=== PATIENT | female | born 1940 | race Caucasian/White ===

== ENCOUNTER 2023-10-12 02:41 | Inpatient (IN) | payer OTHER, SELFPAY ==
[2023-10-11] VITALS (7 sets, daily range): BP systolic 92–122; BP diastolic 32–40; BMI 20.8
--- NOTE | 2023-10-11 21:55 | ED.GENMED ---
Addendum entered and electronically signed by Pavel Alegria PA-C 10/26/23 09:40:
Addendum being added for my signature only on this chart as it was not done previously.
Original Note:
History of Present Illness
<Pavel Alegria PA-C - Last Filed: 10/11/23 22:51>
General
Chief Complaint: Hyper/Hypo Thermia Problem
Source: patient
Time Seen by Provider: 10/11/23 21:28
Travel History
Have you had any contact with someone who has COVID-19?: No
Do you have any symptoms of coronavirus? Fever > 100 degrees, chills, cough, shortness of breath, sore throat, loss of taste or smell, muscle aches, or headache?: No
History of Present Illness
History of Present Illness:
83-year-old female with past medical Struve hypertension, hyperlipidemia and diabetes presenting to the emergency department from home with her daughter who reports that patient moved in with her on Wednesday, started to feel unwell on Wednesday but
daughter attributed this to the recent move, patient experienced progressive weakness, had not been eating or drinking very much and today started with persistent nausea vomiting and diarrhea, had 2 separate falls and earlier this evening when
attempting to give her usual nighttime medications patient proceeded to have a large amount of bilious emesis prompting daughter to bring her to the ER for further evaluation. Upon arrival to the emergency department patient is very sleepy,
arousable to painful stimulation and once somewhat awake will answer most questions but declining any pain or other symptoms. Daughter notes that patient had been living on her own for some time and due to some memory issues no longer felt it was
safe for the patient to be living on her own which is why the patient was moved in with her.
Past History
<Pavel Alegria PA-C - Last Filed: 10/11/23 22:51>
Past History
ED Past Medical History: HTN, Hypercholesterolemia and NIDDM
ED Past Surgical History: Cholecystectomy
Social History
Tobacco: Non-smoker
Alcohol: None
Drug: None
Personal:
Living: with family
Review of Systems
<Pavel Alegria PA-C - Last Filed: 10/11/23 22:51>
Review of Systems
All Other Systems: ROS reviewed and negative except as documented in HPI and ROS
Phy Exam
<Pavel Alegria PA-C - Last Filed: 10/11/23 22:51>
Physical Exam
Physical Exam:
GENERAL: Sleepy but awakens to painful stimuli, intermittent pursed lip breathing
Head: Normocephalic atraumatic
EYE: Clear conjunctiva
NECK: Supple
ENT: o/p clr, dry mucous membranes
CARDIAC: Borderline tachycardic rate and rhythm
LUNGS: Clear breath sounds bilaterally, shallow respirations no wheezes/rales/rhonchi
ABDOMEN: Soft, without focal tenderness, no r/g, no cvat
NEUROLOGICAL: Alert and oriented x 3
SKIN: Cold to the touch and dry, skin intact.
MUSCULOSKELETAL: No edema, well perfused.
PSYCH: Normal and appropriate interaction.
Scores
<Pavel Alegria PA-C - Last Filed: 10/11/23 22:51>
Heart Failure Risk
Heart Failure Risk Score: Not Applicable
Heart Score for Chest Pain Patients
STEMI patient?: Not applicable
Withdrawal Assessment of Alcohol
Withdrawal Assessment Completed?: Not applicable
Course
<Pavel Alegria PA-C - Last Filed: 10/11/23 22:51>
Orders/Labs/Results
Orders:
Orders
10/11/23 21:23
Electrocardiogram (*1) Urgent
Reason for Study: Other
Other Reason for Exam: Possible Sepsis
10/11/23 21:25
EKG- Treatment ONCE
10/11/23 21:35
Josseline Hugger-Treatment ONCE
Patient's goal temperature:: 97 F
Additional Instructions:: Temperature and skin assessment per unit protocol
Straight cath- Treatment ONCE
Piperacillin/Tazo 4.5 Gram [Zosyn] 4.5 gram in 100 ml IV NOW
CR Chest Portable - 1 View Urgent
Comment:
Reason For Exam: hypothermia, N/V
Reason Study Needs to be Portable: Patient Unstable
10/11/23 21:36
CT Head W/o Iv Contrast Urgent
Comment:
Reason For Exam: falls, weak, vomiting
10/11/23 22:04
0.9% Sodium Chloride 1000 ml [Nss] 1,700 ml IV NOW STA
10/11/23 22:10
Complete Blood Count/With Diff Urgent
Comprehensive Metabolic Panel Urgent
Lactic Acid Q4H
Comment: ON ICE, CANCEL 2ND ORDER IF FIRST LACTIC ACID LEVEL <2
Blood Culture Q30M
PAULINE Source: Blood/Venous
Specimen Description:
Comment: FROM 2 SEPARATE SITES
Blood Culture Q30M
PUALINE Source: Blood/Venous
Specimen Description:
Comment: FROM 2 SEPARATE SITES
10/11/23 22:11
Urinalysis Reflex To Culture Urgent
Date Specimen was Collected: 10/11/23
Time Specimen was Collected: 22:09
Urine Microscopic Reflex Cult Urgent
10/11/23 22:12
Vancomycin [Vancocin] 1,500 mg 0.9% Sodium Chloride [Nss] 20 ml 0.9% Sodium Chloride 250 ml [Nss] 250 ml IV NOW
10/11/23 22:44
Calcium Gluconate 1 gram/100mL [Calcium Gluconate] 1 gram in 100 ml IV ONCE
Insulin Human Regular [Novolin R] 4 units IV NOW STA
Sodium Bicarbonate 50 meq IV NOW STA
Sodium Zirconium Cyclosilicate [Lokelma] 10 gram PO NOW STA
10/11/23 22:45
CT Abd/pel Without Iv Or Oral Urgent
Comment:
Reason For Exam: vomiting/diarrhea
10/11/23 23:34
Bedside Glucose- Treatment ONCE
10/12/23 00:15
Sterile Water For Inj [Sterile Water For Injection 1000 ml] 1,000 ml Sodium Bicarbonate 150 meq IV 200 mls/hr
10/12/23 01:30
Lactic Acid Q4H
Comment: ON ICE, CANCEL 2ND ORDER IF FIRST LACTIC ACID LEVEL <2
Abnormal Lab Results
10/11/23 10/11/23
22:10 22:11
WBC 11.4 H 10^3/uL
(4.8-10.8)
RBC 2.78 L 10^6/uL
(4.20-5.40)
Hgb 9.4 L g/dL
(12.0-16.0)
Hct 29.6 L %
(37.0-47.0)
MCV 106.5 H fL
(81.0-99.0)
MCH 33.8 H pg
(27.0-31.0)
MCHC 31.8 L g/dL
(33.0-37.0)
Abs Immat Gran (auto) 0.1 H 10^3/uL
(0-0.05)
Absolute Neuts (auto) 9.5 H 10^3/uL
(1.4-6.5)
Neutrophils % 83.6 H %
(42.2-75.2)
Lymphocytes % 11.3 L %
(20.5-51.1)
Sodium 126 L mmol/L
(135-145)
Potassium 7.1 H* mmol/L
(3.5-5.1)
Chloride 93 L mmol/L
(98-107)
Carbon Dioxide < 5 L* mmol/L
(22-30)
BUN 77 H mg/dl
(7-17)
Creatinine 8.9 H* mg/dL
(0.6-1.0)
Glucose 233 H mg/dl
(70-99)
Lactic Acid 7.3 H* mmol/L
(0.7-2.0)
Urine Ketones Trace A
(Negative)
Urine Albumin (Reflex) 2+ A
(Neg - Trace)
10/11/23 22:10
10/11/23 22:10
Vital Signs
Initial and Last Documented VS:
Initial Vital Signs
Temp Pulse Resp BP
94.2 F L 98 22 104/36
10/11/23 21:09 10/11/23 21:09 10/11/23 21:09 10/11/23 21:09
Last Documented Vital Signs
Temp Pulse Resp BP Pulse Ox
95.6 F L 95 15 100/40 97
10/11/23 22:51 10/11/23 22:30 10/11/23 22:30 10/11/23 22:00 10/11/23 22:30
Arthurlt;Alfredo Hi, DO - Last Filed: 10/12/23 00:39>
Orders/Labs/Results
Orders:
Orders
10/11/23 21:23
Electrocardiogram (*1) Urgent
Reason for Study: Other
Other Reason for Exam: Possible Sepsis
10/11/23 21:25
EKG- Treatment ONCE
10/11/23 21:35
Josseline Hugger-Treatment ONCE
Patient's goal temperature:: 97 F
Additional Instructions:: Temperature and skin assessment per unit protocol
Straight cath- Treatment ONCE
Piperacillin/Tazo 4.5 Gram [Zosyn] 4.5 gram in 100 ml IV NOW
CR Chest Portable - 1 View Urgent
Comment:
Reason For Exam: hypothermia, N/V
Reason Study Needs to be Portable: Patient Unstable
10/11/23 21:36
CT Head W/o Iv Contrast Urgent
Comment:
Reason For Exam: falls, weak, vomiting
10/11/23 22:04
0.9% Sodium Chloride 1000 ml [Nss] 1,700 ml IV NOW STA
10/11/23 22:10
Complete Blood Count/With Diff Urgent
Comprehensive Metabolic Panel Urgent
Lactic Acid Q4H
Comment: ON ICE, CANCEL 2ND ORDER IF FIRST LACTIC ACID LEVEL <2
Blood Culture Q30M
PAULINE Source: Blood/Venous
Specimen Description:
Comment: FROM 2 SEPARATE SITES
Blood Culture Q30M
PAULINE Source: Blood/Venous
Specimen Description:
Comment: FROM 2 SEPARATE SITES
10/11/23 22:11
Urinalysis Reflex To Culture Urgent
Date Specimen was Collected: 10/11/23
Time Specimen was Collected: 22:09
Urine Microscopic Reflex Cult Urgent
10/11/23 22:12
Vancomycin [Vancocin] 1,500 mg 0.9% Sodium Chloride [Nss] 20 ml 0.9% Sodium Chloride 250 ml [Nss] 250 ml IV NOW
10/11/23 22:44
Calcium Gluconate 1 gram/100mL [Calcium Gluconate] 1 gram in 100 ml IV ONCE
Insulin Human Regular [Novolin R] 4 units IV NOW STA
Sodium Bicarbonate 50 meq IV NOW STA
Sodium Zirconium Cyclosilicate [Lokelma] 10 gram PO NOW STA
10/11/23 22:45
CT Abd/pel Without Iv Or Oral Urgent
Comment:
Reason For Exam: vomiting/diarrhea
10/11/23 23:34
Bedside Glucose- Treatment ONCE
10/12/23 00:15
Sterile Water For Inj [Sterile Water For Injection 1000 ml] 1,000 ml Sodium Bicarbonate 150 meq IV 200 mls/hr
10/12/23 01:30
Lactic Acid Q4H
Comment: ON ICE, CANCEL 2ND ORDER IF FIRST LACTIC ACID LEVEL <2
Abnormal Lab Results
10/11/23 10/11/23
22:10 22:11
WBC 11.4 H 10^3/uL
(4.8-10.8)
RBC 2.78 L 10^6/uL
(4.20-5.40)
Hgb 9.4 L g/dL
(12.0-16.0)
Hct 29.6 L %
(37.0-47.0)
MCV 106.5 H fL
(81.0-99.0)
MCH 33.8 H pg
(27.0-31.0)
MCHC 31.8 L g/dL
(33.0-37.0)
Abs Immat Gran (auto) 0.1 H 10^3/uL
(0-0.05)
Absolute Neuts (auto) 9.5 H 10^3/uL
(1.4-6.5)
Neutrophils % 83.6 H %
(42.2-75.2)
Lymphocytes % 11.3 L %
(20.5-51.1)
Sodium 126 L mmol/L
(135-145)
Potassium 7.1 H* mmol/L
(3.5-5.1)
Chloride 93 L mmol/L
(98-107)
Carbon Dioxide < 5 L* mmol/L
(22-30)
BUN 77 H mg/dl
(7-17)
Creatinine 8.9 H* mg/dL
(0.6-1.0)
Glucose 233 H mg/dl
(70-99)
Lactic Acid 7.3 H* mmol/L
(0.7-2.0)
Urine Ketones Trace A
(Negative)
Urine Albumin (Reflex) 2+ A
(Neg - Trace)
10/11/23 22:10
10/11/23 22:10
Vital Signs
Initial and Last Documented VS:
Initial Vital Signs
Temp Pulse Resp BP
94.2 F L 98 22 104/36
10/11/23 21:09 10/11/23 21:09 10/11/23 21:09 10/11/23 21:09
Last Documented Vital Signs
Temp Pulse Resp BP Pulse Ox
95.6 F L 95 15 100/40 97
10/11/23 22:51 10/11/23 22:30 10/11/23 22:30 10/11/23 22:00 10/11/23 22:30
<Pavel Alegria PA-C - Last Filed: 10/11/23 22:51>
MDM/Problems Addressed
Differential Diagnosis Includes:
Sepsis/bacteremia, pneumonia, UTI, aspiration, electrolyte disturbance, kidney injury
MDM/Problems Addressed:
83-year-old female presenting to the emergency department from daughter's home for evaluation of nausea vomiting diarrhea, lack of p.o. intake, seemingly situation that seems to be failure to thrive. Patient's daughter states patient is to be made
DNR/DNI. Patient found to be significantly hypothermic here she was placed with multiple warm blankets and will initiate a Josseline hugger. Labs including cultures and lactic acid ordered chest x-ray and urinalysis ordered. Broad-spectrum antibiotics
ordered for infectious etiologies. Anticipate admission.
<Pavel Alegria PA-C - Last Filed: 10/11/23 22:51>
*Pulse Oximetry
Patient hypoxic: no
*EKG
Interpreted by ED Provider?: Yes
Comparison EKG: no comparison EKG present
Heart Rate: 89
Rate: normal
Rhythm: sinus
Ischemia: no ischemia
*Critical Care Note
Total Time (30-74mins, 75-104mins- exclusive of procedures): 45
comment:
Critical care statement: A total of 45 minutes of critical care time was provided for this patient. This includes management of unstable vital signs, evaluation of the patient at bedside, reviewing the patient's pertinent medical records, discussion
with consultants, review of old EKGs and review of pertinent medical records. This time with separate from time utilized to perform the aforementioned documented procedures
<Alfredo Hi DO - Last Filed: 10/12/23 00:39>
*Medical Biller/Coder Interpretation
Rate: normal
Interpretation: normal
Heart Rate: 78
Rhythm: sinus
<Pavel Alegria PA-C - Last Filed: 10/11/23 22:51>
Patient Management
Discussion with other providers: Hospitalist and Spinning Frame Changer
Escalation/DeEscalation of care consider admission/obs:
Patient's labs returned with significant abnormalities including leukocytosis of 11,000, hemoglobin 9.4, leftward shift. Chemistry is significantly abnormal with sodium of 126, potassium of 7.1, bicarb less than 5, prerenal azotemia and a
creatinine of 8.9, lactic acid 7.3. Due to the significant hyperkalemia, calcium gluconate, insulin, bicarb and Lokelma were ordered. I notified on-call shoe cutter as well as notified hospitalist team that patient will need to be transferred to
the ICU. Hospitalist accepts for continued evaluation and treatment.
ED Attending Note
<Pavel Alegria PA-C - Last Filed: 10/11/23 22:51>
-
Portions of this chart may have been created with voice recognition software.� Occasional wrong word or��sound alike� substitutions may have occurred due to the inherent limitations of voice recognition software.
<Alfredo Hi DO - Last Filed: 10/12/23 00:39>
ED Attending Note
Patient seen and examined by attending physician: Yes
I performed the substantive portion of visit, reviewed & personally made and approve the management plan that is documented in note by myself or JUAN F.: Yes
ED Attending Note:
Seen with PA examined independently agree with assessment and plan ill-appearing lady acute renal failure severe acidosis hyperkalemia, plan will be volume resuscitation, broad-spectrum antibiotics, hyperkalemia treatment CT of the abdomen to rule
out obstruction prognosis appears guarded
Discharge Plan
Departure
Patient Disposition: Admit
Date of Disposition: 10/11/23
Time of Disposition: 22:43
Presentation/result/management discussed w/ accepting MD/DO: Hospitalist
Discharge Problem:
Sepsis, Acute hyponatremia, Acute hyperkalemia, MARTI (acute kidney injury), Anemia
Prescriptions:
No Action
cyanocobalamin (vitamin B-12) [Vitamin B-12] 1,000 mcg Tablet
1,000 mcg PO DAILY
citalopram 20 mg tablet
30 mg PO QPM
lisinopril-hydrochlorothiazide 20-25 mg tablet
1 tab PO QPM
pravastatin 20 mg tablet
20 mg PO QPM
metformin 500 mg tablet extended release 24 hr
1,000 mg PO BID
metoprolol tartrate 25 mg tablet
12.5 mg PO BID
Centrum 18-400 mg-mcg Tablet
1 tab PO DAILY
omega 2-jbl-rgc-fish oil [Fish Oil] 1,000 mg (120 mg-180 mg) Capsule
1 cap PO BID
Move Free [employer] 750 mg-100 mg- 1.65 mg-108 mg Tablet
1 tab PO BID
Referrals:
UNKNOWN - PT DOES,NOT KNOW [Unknown Provider] -
Interventions
Interventions:
*Risk Screen - Suicide Last Done: 10/12/23 00:07
*General Assessment Last Done: 10/11/23 22:30
*Neglect/Abuse Screening Last Done: 10/12/23 00:07
*ED COVID-19 Vaccine History Last Done: 10/12/23 00:06
WO-Dindcd-Swafsektkh Assessment Last Done: 10/11/23 22:52
ED- Neurological Assessment Last Done: 10/11/23 22:52
[2023-10-11] MEDS: NSS 1700 ML IV (22:12)
[2023-10-11] MEDS: ZOSYN 100 IV (22:17)
[2023-10-11 22:18] LABS: % Basophils 0.1 % (0-2); % Eosinophils 0.1 % (0-6); % Immature Granulocytes 0.4 % (0-0.5); % Lymphocytes 11.3 % (20.5-51.1); % Monocytes 4.5 % (1.7-9.3); % Neutrophils 83.6 % (42.2-75.2); Absolute Immature Granulocytes 0.1 10^3/uL (0-0.05); Absolute Lymphocytes 1.3 10^3/uL (1.2-3.4); Absolute Monocytes 0.5 10^3/uL (0.1-0.6); Absolute Neutrophils 9.5 10^3/uL (1.4-6.5); Hematocrit 29.6 % (37.0-47.0); Hemoglobin 9.4 g/dL (12.0-16.0); Mean Corp Hgb Conc. 31.8 g/dL (33.0-37.0); Mean Corpuscular Hgb 33.8 pg (27.0-31.0); Mean Corpuscular Volume 106.5 fL (81.0-99.0); Mean Platelet Volume 9.6 fL (7.4-10.4); Nucleated Red Blood Cells % 0 %; Platelet Count 306 10^3/uL (130-400); Red Blood Cell Count 2.78 10^6/uL (4.20-5.40); Red Cell Dist. Width 12.8 % (11.5-14.5); White Blood Cell Count 11.4 10^3/uL (4.8-10.8)
[2023-10-11 22:19] LABS: Urine Albumin 2+ (Neg - Trace); Urine Bilirubin Negative (Negative); Urine Character Slightly Cloudy (Clear); Urine Color Yellow; Urine Glucose Negative (Negative); Urine Ketone Trace (Negative); Urine Leukocyte Negative (Negative); Urine Nitrite Negative (Negative); Urine Occult Blood Negative (Negative); Urine Urobilinogen Negative (Neg - 1+)
[2023-10-11 22:31] LABS: Urine Granular Cast >15 /LPF (0); Urine Red Blood Cell None Seen /HPF (0-2); Urine Squamous Cell 16-20 /LPF (Few)
[2023-10-11 22:38] LABS: ALT (SGPT) 22 U/L (0-35); AST (SGOT) 31 U/L (14-36); Albumin 4.3 g/dl (3.5-5.0); Alkaline Phosphatase 81 U/L (38-126); Blood Urea Nitrogen 77 mg/dl (7-17); Calcium 9.3 mg/dl (8.4-10.2); Carbon Dioxide < 5 mmol/L (22-30); Chloride 93 mmol/L (98-107); Estimated Creatinine Clearance 4 ml/min; Glucose 233 mg/dl (70-99); Potassium 7.1 mmol/L (3.5-5.1); Sodium 126 mmol/L (135-145); Total Bilirubin 0.5 mg/dl (0.2-1.3); Total Protein 6.7 g/dl (6.3-8.2); eGFR 4.06
[2023-10-11 22:39] LABS: Lactic Acid 7.3 mmol/L (0.7-2.0)
[2023-10-11] MEDS: VANCOCIN 300 ML IV (23:32)
[2023-10-11] MEDS: VANCOCIN 300 MG IV (23:32)
[2023-10-11] MEDS: SODIUM BICARBONATE 50 MEQ IV (23:41)
[2023-10-11] MEDS: NOVOLIN R 4 UNITS IV (23:45)
[2023-10-11] MEDS: CALCIUM GLUCONATE 100 IV (23:50)
[2023-10-12] VITALS (71 sets, daily range): BP systolic 54–134; BP diastolic 27–120; BMI 22.0
[2023-10-12 00:43] LABS: Glucose - Point of Care 229 mg/dl (70-99)
[2023-10-12] MEDS: SODIUM BICARBONATE 1150 MEQ IV ×5 (01:15→22:47)
[2023-10-12] MEDS: LEVOPHED 250 IV ×4 (01:21→20:30)
--- NOTE | 2023-10-12 02:00 | HPS.HSE ---
Family Physician
-
Family Physician: Melquiades Shin
Chief Complaint
-
weakness, nausea, vomiting, diarrhea
History of Present Illness
The patient is an 83 yo woman with PMH significant for HTN, HLD, DM, presents do the ED due to progressive weakness, anorexia, nausea, vomiting, and diarrhea that started on Wednesday. She has had decreased oral intake since that time. She moved in
with her daughter on Wednesday and symptoms have been progressively getting worse over the past several days. She had 2 falls earlier this evening. Emesis this evening was large volume, bilious in nature and she was brought to ED by her daughter. The
patient has been very somnolent but able to answer questions appropriately when prompted. Recently she's had worsening memory issues, for which she she moved in with her daughter after living on her own prior. In the ED she is found to be lethargic,
in acute renal failure, hypothermic, tachycardic, hypotensive, and hyperkalemic. She is being admitted for septic shock, unknown etiology.
ED txt:
IVF 1700 mL sepsis protocol
blood cultures
IV Zosyn, IV Vancomycin
Calcium gluconate, insulin, sodium bicarbonate followed by sodium bicarbonate drip, LoKelma, Levophed gtt
Medical History
Past Medical History
Past Medical History: Reports HTN, Hypercholesterolemia and NIDDM
Past Surgical History: Reports Cholecystectomy
Social History
Tobacco: Non-smoker
Alcohol: None
Drug: None
Personal:
Living: With Family (Daughter)
Family History
Family History: Not pertinent
Allergies / Home Medications
Allergies reflects when Allergies were last updated in [facility].
Home Medications with original date entered in [facility]
Allergy/Medication List:
Allergies
Allergy/AdvReac Type Severity Reaction Status Date / Time
No Known Allergies Allergy Verified 10/11/23 22:01
Home Medications
citalopram 20 mg tablet 30 mg PO QPM 10/11/23
cyanocobalamin (vitamin B-12) 1,000 mcg tablet (Vitamin B-12) 1,000 mcg PO DAILY 10/11/23
glucosam 750 mg-chondroi 100 mg-hyalur 1.65 mg-CF borate 108 mg tablet (Move Free [employer]) 1 tab PO BID 10/11/23
lisinopril 20 mg-hydrochlorothiazide 25 mg tablet 1 tab PO QPM 10/11/23
metformin 500 mg tablet,extended release 24 hr 1,000 mg PO BID 10/11/23
metoprolol tartrate 25 mg tablet 12.5 mg PO BID 10/11/23
multivitamin-ferrous fumarate-folic acid 18 mg-400 mcg tablet (Centrum) 1 tab PO DAILY 10/11/23
omega 0-xft-zjb-fish oil 1,000 mg (120 mg-180 mg) capsule (Fish Oil) 1 cap PO BID 10/11/23
pravastatin 20 mg tablet 20 mg PO QPM 10/11/23
Review of Systems
-
A 12 point ROS was completed and negative except as noted: Yes
Physical Exam
Vital Signs
Vital Signs
Temp Pulse Resp BP Pulse Ox
97.2 F 103 22 83/29 99
10/12/23 01:34 10/12/23 01:19 10/12/23 01:19 10/12/23 01:19 10/12/23 01:19
Physical Exam
General: Appears Chronically Ill and Other (lethargic, bear hugger)
HEENT: NormoCephalic, Anicteric and Other (dry mucosa )
Respiratory: Clear
Cardiac: S1/S2 and Tachycardia
GI: Soft, Non Tender, Non Distended and Normal Bowel Sounds
Musculoskeletal: No Clubbing
Neuro: No Motor Deficits and Nonfocal/grossly intact
Psych: Other (lethargic)
Laboratory Results
-
10/11/23 22:10
10/11/23 22:10
Laboratory Results
Lactic Acid 7.3 mmol/L (0.7-2.0) H* 10/11/23 22:10
Total Bilirubin 0.5 mg/dl (0.2-1.3) 10/11/23 22:10
AST 31 U/L (14-36) 10/11/23 22:10
ALT 22 U/L (0-35) 10/11/23 22:10
Alkaline Phosphatase 81 U/L (38-126) 10/11/23 22:10
Data Reviewed
-
CT Scan: Report Reviewed by me (CT Head no acute findings, CT AP patchy opacities lung bases, no acute intra-abdominal findings, no free air, no bowel obstruction)
Medical Tests (Nuc Med, Echo, EKG etc): Report Reviewed by me (NSR)
Impression/Plan
-
IMPRESSION:The patient is an 83 yo woman with PMH significant for HTN, HLD, DM, presents do the ED due to progressive weakness, anorexia, nausea, vomiting, and diarrhea that started on Wednesday. She has had decreased oral intake since that time. She
moved in with her daughter on Wednesday and symptoms have been progressively getting worse over the past several days. She had 2 falls earlier this evening. Emesis this evening was large volume, bilious in nature and she was brought to ED by her
daughter. The patient has been very somnolent but able to answer questions appropriately when prompted. Recently she's had worsening memory issues, for which she she moved in with her daughter after living on her own prior. In the ED she is found to
be lethargic, in acute renal failure, hypothermic, tachycardic, hypotensive, and hyperkalemic. She is being admitted for septic shock, unknown etiology.
ED txt:
IVF 1700 mL sepsis protocol
blood cultures
IV Zosyn, IV Vancomycin
Calcium gluconate, insulin, sodium bicarbonate followed by sodium bicarbonate drip, LoKelma, Levophed gtt
#Septic shock, unknown etiology, consider pneumonia bibasilar versus bacteremia associated with leukocytosis with leftward shift, lactic acidosis, severe metabolic acidosis, unremarkable urine analysis
-blood cultures pending
-IV Vanco, IV Zosyn
-IVF
-Levo gtt, continue
-serial labs
-serial LA level
#Acute renal failure, no known history of renal disease
-severe dehydration associated with n/v/d- no current n/v/d, normal LFTs
-stool studies
-IV bicarb gtt
-follow labs
-Nephro consulted
-serial LA level
#HTN
#HLD
DVT proph - hep SQ
DNR
75 minutes of critical care time is spent on the care of the patient
[2023-10-12 03:22] LABS: Lactic Acid 4.4 mmol/L (0.7-2.0)
--- NOTE | 2023-10-12 03:27 | W.PN.SEPSIS ---
Sepsis
Vital Signs
Temp Pulse Resp BP Pulse Ox
97.2 F 103 21 90/35 100
10/12/23 01:34 10/12/23 03:00 10/12/23 03:00 10/12/23 03:00 10/12/23 03:21
Physical Exam
Physical Exam:
A focused exam was performed after fluid resuscitation.
Capillary Refill
Bilateral Lower Extremity:
Marianna Time: Less than 3 sec
Pulse Evaluation
Bilateral:
Pulse Evaluation: Present
[2023-10-12 03:31] LABS: COVID-19 Antigen Negative (Negative)
[2023-10-12 04:02] LABS: Magnesium 2.6 mg/dl (1.6-2.3)
[2023-10-12 04:03] LABS: % Basophils 0.1 % (0-2); % Eosinophils 0.1 % (0-6); % Immature Granulocytes 0.9 % (0-0.5); % Lymphocytes 17.3 % (20.5-51.1); % Monocytes 7.6 % (1.7-9.3); Absolute Immature Granulocytes 0.1 10^3/uL (0-0.05); Absolute Monocytes 0.9 10^3/uL (0.1-0.6); Absolute Neutrophils 8.7 10^3/uL (1.4-6.5); Hematocrit 25.3 % (37.0-47.0); Hemoglobin 8.4 g/dL (12.0-16.0); Mean Corp Hgb Conc. 33.2 g/dL (33.0-37.0); Mean Corpuscular Hgb 33.5 pg (27.0-31.0); Mean Corpuscular Volume 100.8 fL (81.0-99.0); Mean Platelet Volume 9.3 fL (7.4-10.4); Nucleated Red Blood Cells % 0 %; Platelet Count 267 10^3/uL (130-400); Red Blood Cell Count 2.51 10^6/uL (4.20-5.40); Red Cell Dist. Width 12.7 % (11.5-14.5); White Blood Cell Count 11.7 10^3/uL (4.8-10.8)
[2023-10-12 04:21] LABS: Lactic Acid 4.7 mmol/L (0.7-2.0)
[2023-10-12 04:23] LABS: APTT 25.8 Sec (23.4-35.0); INR 1.26; PT 15.7 Sec (11.4-14.6)
[2023-10-12 04:24] LABS: Fibrinogen 377 MG/DL (199-459)
[2023-10-12 04:26] LABS: D-Dimer 1.95 ug/mlFEU (0.00-0.50)
[2023-10-12 04:34] LABS: Procalcitonin 0.64 ng/ml (0.0-0.25)
--- NOTE | 2023-10-12 04:53 | W.PN.UPDATE ---
Update Note
Progress Note Update
0400 Patient's right arm peripheral IV blew resulting in Levophed extravasation. IV unable to aspirate. Instructed to remove peripheral IV, elevate arm, and apply warm compression. Monitor the site and phentolamine ordered SQ with any
significant changes.
[2023-10-12 04:54] LABS: TSH 2.27 uIU/ml (0.47-4.68)
[2023-10-12 05:01] LABS: ALT (SGPT) 15 U/L (0-35); AST (SGOT) 25 U/L (14-36); Albumin 3.3 g/dl (3.5-5.0); Alkaline Phosphatase 62 U/L (38-126); Blood Urea Nitrogen 81 mg/dl (7-17); Calcium 8.7 mg/dl (8.4-10.2); Carbon Dioxide 7 mmol/L (22-30); Chloride 95 mmol/L (98-107); Estimated Creatinine Clearance 4 ml/min; Glucose 201 mg/dl (70-99); Potassium 6.8 mmol/L (3.5-5.1); Sodium 130 mmol/L (135-145); Total Bilirubin 0.5 mg/dl (0.2-1.3); Total Protein 5.4 g/dl (6.3-8.2); eGFR 4.35
[2023-10-12] MEDS: DEXTROSE 50% SYRINGE 25 GRAMS IV ×2 (05:46→12:37)
[2023-10-12] MEDS: NOVOLIN R 10 UNITS IV (05:46)
[2023-10-12] MEDS: ZOSYN 50 IV ×3 (05:46→20:52)
--- NOTE | 2023-10-12 06:00 | PTCARENOTE ---
Pt recently moved in with daughter (10/09). As per daughter, pt was progressively weak, decreased PO intake, nausea/vomiting/diarrhea,fellX2, sleepy but arousable. In ED, hypothermic 94.2PR, karlene hugger. EKG NSR. Electrolytes as resulted.
All IVs infiltrated upon arrival to ICU. Regitine given by VAT team to right forearm (levo site), measures 4.5X3.75, elevated/heat applied. 3 PIV placed. Repeat K6.8, Amp D50, 10U Reg insulin IV. Pt responds to voice, oriented to self consistently.
PHILIP generalized weakness. No c/o pain. Rectal probe placed, temp 98.0. NSR on monitor. BP MAP goal 65, titrating levo to clinical endpoint. Bicarb gtt. Room air, clear. NPO, nausea at times. Reyes placed. No urine output. Bladder scan 0. Report
given to ongoing shift.
[2023-10-12] MEDS: REGITINE 10 MG SC (06:21)
[2023-10-12] MEDS: REGITINE 10 ML SC (06:21)
--- NOTE | 2023-10-12 07:10 | VATNOTE ---
Called to assess right arm levophed infiltrattion Measuring 11.5cm x 9.5 cm. Hyaluronidase given. elevated on pillows with warm compress. Will monitor closely.
[2023-10-12] MEDS: HEPARIN 5000 UNITS SC ×2 (07:50→20:52)
[2023-10-12] MEDS: PITRESSIN 100 IV ×2 (07:52→16:54)
--- NOTE | 2023-10-12 08:01 | PTCARENOTE ---
Pt with increasing pressor requirements this am as charted. Bicarb gtt also infusing as ordered. Dr Mercedes updated and vasopressin ordered and initiated. Consult also ordered for IR to place tlc. They are currently at bedside to place
catheter.
--- NOTE | 2023-10-12 08:02 | CON.INTV ---
Consultation
Consultation Request
Date/Time Consultation Requested: 10/12/2023706
Date/Time Consultation Performed: 10/12/2023800
Requesting Provider: KANDICE Garces
Performing Provider: Dr. Mercedes
Reason for Consultation: Shock on vasopressors
Medical History
-
Chief Complaint: Nausea/vomiting
History of Present Illness:
83-year-old F with PMHx below who p/w nausea/vomiting, weakness, diarrhea x few days and hypothermic in ER. Pt hypotensive in ER to 91/32, she was given IVF with 1.7L and started on levophed. WBC elevated to 11.4, lactate elevated to 4.4, MARTI
with Cr 8.9. UA appears clear. Pt given Abx. Iniital K 7.1 and she was Tx with temporizing agents with dextrose + insulin. Repeat K is 6.8 this AM. Lokelma could not be given due to nausea/vomiting. She was started on bicarb gtt and TRX to ICU
for further care. After arriving from ER she had RUE infiltration of levo and bicarb. Her RUE was Tx with phentolamine 5mg. Critical care services consulted for additional recommendations.
This AM pt was seen and her BP was 110/67, HR 96 and RR 21. She is on room air saturating 98%. She is sleepy but awakens, albeit she is disoriented/confused.
PMHx: Hypertension, hyperlipidemia, DM type II
PSHx: Cholecystectomy
Past Medical History
Past Medical History: Other (Above as per HPI)
Past Surgical History: Other (Above as per HPI)
Social History
Tobacco: Non-smoker
Alcohol: None
Drug: None
Personal:
Living: With Family
Family History
Family History: Reviewed & Not Pertinent
Allergies / Home Medications
Allergies
Allergy/AdvReac Type Severity Reaction Status Date / Time
No Known Allergies Allergy Verified 10/11/23 22:01
Home Medications
Medication Instructions Recorded Confirmed Last Taken Type
citalopram 20 mg tablet 30 mg PO QPM 10/11/23 10/11/23 10/10/23 History
cyanocobalamin (vitamin B-12) 1,000 mcg PO DAILY 10/11/23 10/11/23 10/10/23 History
1,000 mcg tablet (Vitamin B-12)
glucosam 750 mg-chondroi 100 1 tab PO BID 10/11/23 10/11/23 10/10/23 History
mg-hyalur 1.65 mg-CF borate 108 mg
tablet ([employer])
lisinopril 20 1 tab PO QPM 10/11/23 10/11/23 10/10/23 History
mg-hydrochlorothiazide 25 mg tablet
metformin 500 mg tablet,extended 1,000 mg PO BID 10/11/23 10/11/23 10/10/23 History
release 24 hr
metoprolol tartrate 25 mg tablet 12.5 mg PO BID 10/11/23 10/11/23 10/10/23 History
multivitamin-ferrous 1 tab PO DAILY 10/11/23 10/11/23 10/10/23 History
fumarate-folic acid 18 mg-400 mcg
tablet (Centrum)
omega 2-ruq-qlr-fish oil 1,000 mg 1 cap PO BID 10/11/23 10/11/23 10/10/23 History
(120 mg-180 mg) capsule (Fish Oil)
pravastatin 20 mg tablet 20 mg PO QPM 10/11/23 10/11/23 10/10/23 History
Review of Systems
-
History Source: Patient
All other systems: Negative unless noted
Vitals / Labs / Diagnostic Testing
Vital Signs
Temp Pulse Resp BP Pulse Ox
97.5 F 105 18 105/55 95
10/12/23 08:16 10/12/23 08:15 10/12/23 08:15 10/12/23 08:15 10/12/23 08:15
Lab Data
10/12/23 03:52
10/12/23 03:52
Laboratory Results
10/12/23 10/12/23 10/12/23
03:52 03:52 03:52
PT 15.7 H Cancelled
INR 1.26 Cancelled
APTT 25.8
10/12/23
03:52
PT
INR
APTT Cancelled
Diagnostic Testing:
Physical Exam
-
HEENT: Normocephalic and Anicteric
Cardiovascular: S1/S2 and Peripheral Edema (+1 LE pitting edema b/l)
Respiratory: Clear (anterior lung huang b/l), Wheeze (Negative), Rales (Negative), Rhonchi (Negative) and Non-Labored Respirations
GI: Soft, Non Distended and Non Tender
Neurology: Awake and Alert
Skin: Warm, Dry and Other (Erythema seen with small amount of blistering involving the proximal, medial right upper extremity)
General: Comfortable
Assessment
-
Assessment: 83-year-old F with PMHx below who p/w nausea/vomiting, weakness, diarrhea x few days and hypothermic in ER. Pt hypotensive in ER to 91/32, she was given IVF with 1.7L and started on levophed. WBC elevated to 11.4, lactate elevated
to 4.4, MARTI with Cr 8.9. UA appears clear. Pt given Abx. Iniital K 7.1 and she was Tx with temporizing agents with dextrose + insulin. Repeat K is 6.8 this AM. Lokelma could not be given due to nausea/vomiting. She was started on bicarb gtt and
TRX to ICU for further care. After arriving from ER she had RUE infiltration of levo and bicarb. Her RUE was Tx with phentolamine 5mg. Critical care services consulted for additional recommendations.
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
Impression:
#Acute kidney injury with hyperkalemia -due to prerenal azotemia in the setting of severe hypovolemia
#Hypovolemic shock with possible septic component (RLL + colitis are septic sources)
#Diarrhea with (mild) colitis seen on CT abd/pelvis
#Lactic acidosis
#Metabolic acidosis with increased anion gap -multifactorial due to lactic acidosis, starvation ketoacidosis and acute kidney injury
#Anemia
#Infiltrated IV with vasopressors causing local injury to RUE s/p phentolamine
Plan:
- Appears that patient has severe hypovolemia with starvation ketosis/ketoacidosis --> in this setting, we should give not only bicarb, but only IVF in addition to glucose containing fluids --> this has been shown to improve patient's endogenous
insulin production and restoring normal metabolic processes thus improving the metabolic acidosis and the hyperglycemia also should improve
- I will change the sterile HCO3 gtt to D5-HCO3 gtt and also add gentle hydration with NS 0.9% at 75mL/hr
- Trend sCr, [K], blood glucose and use ISS q6hr
- Use temporizing agents to treat K>5.8 with goal K 3.5 - 5.2
- Will need central line to be placed mejia given the recent vasopressor infiltration into RUE --> consult IR for placement of IJ CVC/TLC
- Check vitamin B1 level given mild RUL PNA and clear urine with low suspicion for severe sepsis
- Continue vasopressors with goal MAP>65
- Continue broad spectrum ABx with zosyn and vanco --> DC IV vanco if MRSA swab negative
- Once pt stabilizes then we can narrow Abx down to unasyn
- Would given total of 7-10 days ABx
- Check renal US --> no hydro seen
- Follow up blood Cx and trend procal; follow up stool Cx
- Consult wound care for RUE and monitor pulses q1hr at least for first 24 hrs
- renally dose all meds/Abx
- stress ulcer ppx: n/a
- DVT ppx: HSQ
Code status: DNR
Critical care statement: A total of 40 minutes of critical care time was provided for this patient today. This includes management of unstable vital signs, evaluation of the patient at bedside, reviewing the patient's pertinent medical records
including radiographs, microbiology, laboratory evaluations, and discussion with primary team, consultants, pharmacy, nutrition, physical therapy, case management, charge nurse, critical care nursing, and respiratory therapy.
Data:
CT abd/pelvis 10-11-2023:
1. Suspicion for a mild colitis given the presence of mild diffuse colonic wall thickening. However, overall somewhat limited evaluation for an acute inflammatory process in the absence of oral and intravenous contrast.
2. Right lower lobe pneumonia.
[2023-10-12 08:56] LABS: Glycohemoglobin (HgbA1c) 5.8 % (4.0-5.6)
--- NOTE | 2023-10-12 09:08 | PTCARENOTE ---
Daughter called in and was given update.
--- NOTE | 2023-10-12 09:09 | PHA.VAN.IN ---
Assessment
- Assessment
Renal Function: Unknown baseline (no prior admissions but MARTI per notes)
Concomitant Antimicrobials: piperacillin/tazobactam
Plan
- Plan
Initial / Loading Dose: 1500mg - 10/11 23:32
Maintenance Regimen: PRN by level
Monitoring: random 10/13 0600
MRSA Screen: Ordered per protocol
Pharmacokinetics Vancomycin I
- -
Patient Age: 83
Patient Sex: Female
Vancomycin Day #: 1
Indication: Pulmonary/Respiratory
Requesting Provider: Dr. Terrazas
Pertinent Antimicrobial Allergies:
NKDA
Height / Weight:
Height 5 ft 5 in
Actual Weight 59.9 kg
Pertinent Past Medical History: DM
- Vital Signs / Lab Results
Temp Pulse Resp BP Pulse Ox
97.5 F 105 18 105/55 95
10/12/23 08:16 10/12/23 08:15 10/12/23 08:15 10/12/23 08:15 10/12/23 08:15
Lab Results - Hematology
10/11/23 10/12/23
22:10 03:52
WBC 11.4 H 11.7 H
Lab Results - Chemistry
10/11/23 10/12/23 10/12/23
22:10 03:08 03:52
BUN 77 H Cancelled 81 H
Creatinine 8.9 H* Cancelled 8.4 H*
Estimated Creat Clear 4 Cancelled 4
Albumin 4.3 3.3 L
10/11/23 10/12/23 10/12/23
22:10 02:32 03:52
Lactic Acid 7.3 H* 4.4 H* 4.7 H*
10/12/23
07:07
Lactic Acid 6.0 H*
Lab Results - Urine
10/11/23
22:11
Urine Nitrite (Reflex) Negative
Leukocyte Esterase Rfl Negative
Urine WBC (Reflex) 3-5
Ur Squamous Epith Cells 16-20
--- NOTE | 2023-10-12 09:35 | W.PN.HOSP.TC ---
Today's Communication/Plan
-
IVF, antibiotics, pressors, monitor renal function and electrolytes
Assessment / Plan
Assessment / Plan
Physical exam:
General: Acutely ill
HEENT: Normocephalic, Atraumatic and Dry Mucous Membranes
Respiratory: Clear to Auscultation; Negative Wheezes, Rales or Rhonchi
Cardiac: Regular Rhythm and S1/S2
GI: Soft, Nontender and Nondistended
Musculoskeletal: No Clubbing, No Cyanosis and No Edema
Neuro: Awake, Alert and Disoriented
Psych: Calm, limited judgement and insight
A/P:
Septic and/or Hypovolemic Shock-->aggressive ivf, pressors, broad spectrum antibiotics (source colitis and ?pna). Negative C Diff. Follow cultures.
MARTI with likely ATN and both severe anion gap and non anion gap metabolic acidosis with lactic acidosis, hyperkalemia, and hyponatremia--> glucose and bicarbonate infusion, hold hctz/vanessa inh, monitor acidosis, might need HD or CRRT, nephrology
following.
HTN--> currently hypotensive on pressors. Hold antihypertensives
Infiltration pressor upper extr--> s/p phentolamine
HLD--> hold statins
DM type 2--> insulin sliding scale, hold metformin
Depression/cognitive impairment--> hold ssri
DVT proph - hep SQ
Code status--> DNR, prognosis guarded
Total time spent on today's encounter was 52 minutes which included time spent in counseling the patient/family regarding diagnosis and treatment plan as listed above, goals of care, and symptom management. Case was discussed with nursing staff,
specialists, and care coordinators/case management. All labs and imaging personally reviewed by me. Remainder the time spent in detailed review of previous records, lab data, imaging, and other medical provider documentation.
Anticipated Discharge: > 48 hours
Subjective/Interval History
-
Date of Service: October 12, 2023
Patient remains on pressor for BP support, alert but disoriented and mittens on hands. Frail.
Objective Data
-
Labs:
Laboratory Results
10/11/23 10/12/23 10/12/23
22:10 03:08 03:52
WBC 11.4 H 11.7 H
Hgb 9.4 L 8.4 L
Hct 29.6 L 25.3 L
Plt Count 306 267
PT 15.7 H
INR
APTT
Sodium 126 L Cancelled
Potassium 7.1 H* Cancelled
Chloride 93 L Cancelled
Carbon Dioxide < 5 L* Cancelled
BUN 77 H Cancelled
Creatinine 8.9 H* Cancelled
Glucose 233 H Cancelled
Calcium 9.3 Cancelled
Total Bilirubin 0.5
AST 31
ALT 22
Alkaline Phosphatase 81
10/12/23 10/12/23 10/12/23
03:52 03:52 03:52
WBC
Hgb
Hct
Plt Count
PT Cancelled
INR 1.26 Cancelled
APTT 25.8 Cancelled
Sodium 130 L
Potassium 6.8 H*
Chloride 95 L
Carbon Dioxide 7 L*
BUN 81 H
Creatinine 8.4 H*
Glucose 201 H
Calcium 8.7
Total Bilirubin 0.5
AST 25
ALT 15
Alkaline Phosphatase 62
Vital Signs:
Vital Signs
Temp Pulse Resp BP Pulse Ox
97.5 F 105 18 105/55 95
10/12/23 08:16 10/12/23 08:15 10/12/23 08:15 10/12/23 08:15 10/12/23 08:15
I&O
10/11/23 10/12/23 10/13/23
06:59 06:59 06:59
Intake Total 330 / 330 196.5 / 196.5
Output Total 0 / 0
Balance 330 / 330 196.5 / 196.5
--- NOTE | 2023-10-12 11:28 | W.CON.NEPH ---
Consultation
-
Date/Time Consultation Requested: October 12, 2023, 7am
Date/Time Consultation Performed: October 12, 2023 10:30 AM
Requesting Provider: Nini
Performing Provider: Olimpia
Reason for Consultation: Acute kidney injury, hyperkalemia , metabolic acidosis
Medical History
-
Chief Complaint: acute kidney injury, Hyperkalemia, gap metabolic acidosis
History of Present Illness:
The patient is an 83 yo woman with PMH significant for HTN, HLD, DM, presents do the ED due to progressive weakness, anorexia, nausea, vomiting, and diarrhea that started on Wednesday. She has had decreased oral intake since that time. She moved in
with her daughter on Wednesday and symptoms have been progressively getting worse over the past several days. She had 2 falls earlier this evening. Emesis this evening was large volume, bilious in nature and she was brought to ED by her daughter. The
patient has been very somnolent but able to answer questions appropriately when prompted. Recently she's had worsening memory issues, for which she she moved in with her daughter after living on her own prior. In the ED she is found to be lethargic,
in acute renal failure, hypothermic, tachycardic, hypotensive, and hyperkalemic. She is being admitted for septic shock, unknown etiology. . The patient is chronically maintained on hydrochlorothiazide and lisinopril for her hypertension.She is
maintained on metformin for her diabetes. We were asked to see the patient in regards to her acute kidney injury Metabolic acidosis and hyperkalemia. Her creatinine elevation is 8.4, with an unknown baseline with a corresponding hyperkalemia of 6.8
and a gap metabolic acidosis with a serum bicarbonate of 7. She is currently on 2 pressor support in the intensive care unit.�
Past Medical History
Past Medical History: HTN, Hypercholesterolemia and NIDDM
Past Surgical History: Cholecystectomy
Social History
Tobacco: Non-Smoker
Alcohol: None
Living: With Family
Family History
No CK D
Family History: Not Pertinent
Allergies / Home Medications
Allergy/AdvReac Type Severity Reaction Status Date / Time
No Known Allergies Allergy Verified 10/11/23 22:01
Medication Instructions Recorded Confirmed Type
citalopram 20 mg tablet 30 mg PO QPM 10/11/23 10/11/23 History
cyanocobalamin (vitamin B-12) 1,000 mcg PO DAILY 10/11/23 10/11/23 History
1,000 mcg tablet (Vitamin B-12)
glucosam 750 mg-chondroi 100 1 tab PO BID 10/11/23 10/11/23 History
mg-hyalur 1.65 mg-CF borate 108 mg
tablet ([employer])
lisinopril 20 1 tab PO QPM 10/11/23 10/11/23 History
mg-hydrochlorothiazide 25 mg tablet
metformin 500 mg tablet,extended 1,000 mg PO BID 10/11/23 10/11/23 History
release 24 hr
metoprolol tartrate 25 mg tablet 12.5 mg PO BID 10/11/23 10/11/23 History
multivitamin-ferrous 1 tab PO DAILY 10/11/23 10/11/23 History
fumarate-folic acid 18 mg-400 mcg
tablet (Centrum)
omega 3-rsw-jyk-fish oil 1,000 mg 1 cap PO BID 10/11/23 10/11/23 History
(120 mg-180 mg) capsule (Fish Oil)
pravastatin 20 mg tablet 20 mg PO QPM 10/11/23 10/11/23 History
Review of Systems
-
Unable to obtain full review of systems at this time due to: Other ( patient currently lethargic and poorly responsive)
History Source: Patient
All other systems: Negative unless noted
Constitutional: Fatigue
Respiratory: No Symptoms
Cardiac: No Symptoms
Abdomen/GI: Abdominal Pain, Nausea, Vomiting and Diarrhea
: Other (. Currently, anuric)
Skin: No Symptoms
Neurological: Weakness
Endocrine: No Symptoms
Hematologic/Lymphatic: No Symptoms
Physical Exam
Vital Signs
Vital Signs
Temp Pulse Resp BP Pulse Ox
97.5 F 91 19 99/32 97
10/12/23 08:16 10/12/23 11:00 10/12/23 11:00 10/12/23 11:00 10/12/23 08:30
Lab Results
WBC 11.7 10^3/uL (4.8-10.8) H 10/12/23 03:52
RBC 2.51 10^6/uL (4.20-5.40) L 10/12/23 03:52
Hgb 8.4 g/dL (12.0-16.0) L 10/12/23 03:52
Hct 25.3 % (37.0-47.0) L 10/12/23 03:52
Plt Count 267 10^3/uL (130-400) 10/12/23 03:52
eGFR 4.35 10/12/23 03:52
Albumin 3.3 g/dl (3.5-5.0) L 10/12/23 03:52
Physical Exam
General: Awake and Other (Lethargic but responsive)
HEENT: PERRL, Neck Supple, Trachea Midline, No JVD and No Thyromegaly
Respiratory: Other (Coarse breath sounds)
Cardiac: S1/S2, Regular Rate/Rhythm (Tachycardia) and Edema
Breast: Deferred by me
Abdomen: Soft, Nontender, Nondistended, Normal Bowel Sounds and No Hepatosplenomegaly
Genito-urinary: Other (Reyes catheter in place)
Musculoskeletal: No Clubbing, No Cyanosis and Edema
Skin: No Rash
Neuro: Nonfocal/Grossly Intact
Hematologic/Lymphatic: No Cervical Lymphadenopathy, No Submandibular Lymphadenopathy and No Supraclavicular Lymphadenopathy
Psych: Other (Lethargic and somewhat confused)
Assessment/Plan
-
Impression::
Acute kidney injury
Hyperkalemia
Gapped Metabolic acidosis (28)
Sepsis physiology with hypotension
History of diabetes on metformin
Right pneumonia
Anemia
Plan:
Patient is critically ill with profound life-threatening hyperkalemia, renal failure and septic physiology
-We should continue alkaline IV fluids in the setting of her gapped metabolic acidosis in addition to dual pressor support to maintain mean arterial perfusion pressures greater than 65
-Metformin, hydrochlorothiazide and lisinopril
-Hyperkalemia to be treated medically with insulin, D50 and sodium bicarbonate administration, lokelma provided
-Maintain Reyes catheter
-Although metabolic acidosis is In may be due to lactic acidosis, I will also obtain a beta hydroxybutyrate and acetone level to assess for DKA, Maintain sodium bicarbonate infusion at 150 cc per hour
-Lactic acidosis may be precipitated by metformin administration the setting of acute kidney injury
-No evidence of obstructive uropathy by CAT scan review
-Broad-spectrum antibiotic therapy and provided and to be appropriately renally dose
-I had a discussion with the daughter who stated that her mother does not want aggressive care and has wanted to over the past several months, and henceforth, dialysis, even temporarily,is not to be performed
-If dialysis was to be provided, we would have to perform CRRT given hemodynamic instability
Total Time Spent with Patient (in minutes): 45
Data Reviewed
-
Radiology: Image Personally Visualized and interpreted (Chest x-ray personally reviewed, noted hyperinflated lung huang, right middle lobe infiltrate)
CT Scan: Report Reviewed by me
Labs: Labs Reviewed by me and Other
Critical Care Time (in minutes): 45
Labs
-
Labs:
10/12/23 03:52
10/12/23 11:14
WBC 11.7 10^3/uL (4.8-10.8) H 10/12/23 03:52
RBC 2.51 10^6/uL (4.20-5.40) L 10/12/23 03:52
Hgb 8.4 g/dL (12.0-16.0) L 10/12/23 03:52
Hct 25.3 % (37.0-47.0) L 10/12/23 03:52
Plt Count 267 10^3/uL (130-400) 10/12/23 03:52
Sodium 127 mmol/L (135-145) L 10/12/23 11:14
Potassium 6.0 mmol/L (3.5-5.1) H 10/12/23 11:14
Chloride 95 mmol/L (98-107) L 10/12/23 11:14
Carbon Dioxide 7 mmol/L (22-30) L* 10/12/23 11:14
BUN 78 mg/dl (7-17) H 10/12/23 11:14
Creatinine 8.3 mg/dL (0.6-1.0) H* 10/12/23 11:14
eGFR 4.41 10/12/23 11:14
Glucose 135 mg/dl (70-99) H 10/12/23 11:14
Calcium 7.7 mg/dl (8.4-10.2) L 10/12/23 11:14
Albumin 3.3 g/dl (3.5-5.0) L 10/12/23 03:52
[2023-10-12 11:33] LABS: Blood Urea Nitrogen 78 mg/dl (7-17); Calcium 7.7 mg/dl (8.4-10.2); Carbon Dioxide 7 mmol/L (22-30); Chloride 95 mmol/L (98-107); Estimated Creatinine Clearance 5 ml/min; Glucose 135 mg/dl (70-99); Sodium 127 mmol/L (135-145); eGFR 4.41
[2023-10-12 11:34] LABS: Lactic Acid 8.3 mmol/L (0.7-2.0)
[2023-10-12] MEDS: NSS 1000 IV ×2 (12:14→22:09)
[2023-10-12 12:29] LABS: Glucose - Point of Care 161 mg/dl (70-99)
[2023-10-12] MEDS: NOVOLIN R 6 UNITS IV (12:38)
--- NOTE | 2023-10-12 16:04 | CM ---
CM following re: discharge planning.
Reviewed pt's chart, met with ptr and spoke to daughter Vignesh.
Pt is an 83 year old female, admitted with primary dx of Sepsis.
Pt has been sleeping all day long. Per daughter Vignesh, she is only the child, pt used to live alone in [place], just moved to daughter's house 3 days ago. Per daughter, pt ambulates with a cane at baseline and daughter stated she brought her mother
to her house to provide more care. Pert daughter pt ambulates with a cane. No VN or SNF history. Pt's daughter stated she will plan top bring her mother back home at discharge.
PCO: Melquiades Shin
Pharmacy: [facility]
D/C plan: Daughter stated she will bring her mother home at discharge with services pt qualifies.
CM will follow with discharge plan updates as hospitalization progresses
[2023-10-12 16:56] LABS: Blood Urea Nitrogen 76 mg/dl (7-17); Calcium 7.2 mg/dl (8.4-10.2); Carbon Dioxide 9 mmol/L (22-30); Chloride 93 mmol/L (98-107); Estimated Creatinine Clearance 5 ml/min; Glucose 225 mg/dl (70-99); Potassium 5.6 mmol/L (3.5-5.1); Sodium 125 mmol/L (135-145); eGFR 4.61
[2023-10-12 16:57] LABS: Lactic Acid 7.3 mmol/L (0.7-2.0)
[2023-10-12 17:19] LABS: Glucose - Point of Care 228 mg/dl (70-99)
--- NOTE | 2023-10-12 17:25 | PTCARENOTE ---
REpeat labs/pressor requirement/urine output reviewed with dental hygienist mobile coordinator and casting molder. Albumin added, bicarb gtt to continue. Repeat labs ordered for this evening.
[2023-10-12] MEDS: NOVOLOG FLEXPEN-LOW RESISTANCE 2 UNITS SC (17:39)
[2023-10-12 18:03] LABS: B-Hydroxybutyrate 7.49 mmol/L (0.02-0.27)
[2023-10-12] MEDS: FLEXBUMIN 100 IV (18:12)
--- NOTE | 2023-10-12 18:24 | PTCARENOTE ---
Site of levo infiltrate now fluid filled blister. Iv team notified, no further tx. Consult placed to WOC rn.
--- NOTE | 2023-10-12 20:27 | PTCARENOTE ---
received patient. patient drowsy but arousable to voice. oriented to name and birthday at times. b/l mitts in place to prevent removing lines. SR on monitor. levo and vaso gtts infusing through RIJ CVC to maintain MAP >65. pt satting 88% upon spO2
check, 2L NC placed. garcia with therm and rectal trumpet in place. R arm with fluid pocket noted. bicarb gtt infusing. oral care provided, pt repositioned. plan of care ongoing.
[2023-10-12 21:11] LABS: Venous Blood Gas B.E. -13.7 mmol/L (-4 to +4); Venous Blood Gas HCO3 12.6 mmol/L (22-27); Venous Blood Gas O2 Sat % 98.9 %; Venous Blood Gas pCO2 30 mmHg (35-48); Venous Blood Gas pH 7.23 (7.32-7.43); Venous Blood Gas pO2 125 mmHg (30-50)
[2023-10-12 21:26] LABS: Lactic Acid 8.5 mmol/L (0.7-2.0)
[2023-10-12 21:39] LABS: ALT (SGPT) 19 U/L (0-35); AST (SGOT) 42 U/L (14-36); Albumin 3.4 g/dl (3.5-5.0); Alkaline Phosphatase 51 U/L (38-126); Blood Urea Nitrogen 78 mg/dl (7-17); Calcium 7.1 mg/dl (8.4-10.2); Carbon Dioxide 10 mmol/L (22-30); Chloride 90 mmol/L (98-107); Estimated Creatinine Clearance 5 ml/min; Glucose 181 mg/dl (70-99); Potassium 5.4 mmol/L (3.5-5.1); Sodium 126 mmol/L (135-145); Total Bilirubin 0.5 mg/dl (0.2-1.3); Total Protein 5.2 g/dl (6.3-8.2); eGFR 4.83
[2023-10-12 23:39] LABS: Glucose - Point of Care 192 mg/dl (70-99)
[2023-10-13] VITALS (35 sets, daily range): BP systolic 87–144; BP diastolic 35–104; BMI 22.2
[2023-10-13] MEDS: FLEXBUMIN 100 IV (00:03)
[2023-10-13] MEDS: NOVOLOG FLEXPEN-LOW RESISTANCE 1 UNITS SC (00:05)
--- NOTE | 2023-10-13 00:11 | PTCARENOTE ---
patient reassessed. SR on monitor. drowsy but arousable to voice. 2L NC, satting 96%. levo/vaso/bicarb/ivf infusing through RIJ CVC. garcia and rectal trumpet draining. pt repositioned, oral care provided. plan of care ongoing.
[2023-10-13] MEDS: LEVOPHED 250 IV ×2 (01:07→07:14)
[2023-10-13] MEDS: PITRESSIN 100 IV ×2 (04:08→15:51)
[2023-10-13 04:28] LABS: % Basophils 0.1 % (0-2); % Immature Granulocytes 0.4 % (0-0.5); % Lymphocytes 7.6 % (20.5-51.1); % Monocytes 9.1 % (1.7-9.3); % Neutrophils 82.8 % (42.2-75.2); Absolute Lymphocytes 0.7 10^3/uL (1.2-3.4); Absolute Monocytes 0.8 10^3/uL (0.1-0.6); Absolute Neutrophils 7.7 10^3/uL (1.4-6.5); Mean Corpuscular Hgb 33.5 pg (27.0-31.0); Mean Corpuscular Volume 98.5 fL (81.0-99.0); Mean Platelet Volume 9.7 fL (7.4-10.4); Nucleated Red Blood Cells % 0 %; Platelet Count 190 10^3/uL (130-400); Red Cell Dist. Width 12.9 % (11.5-14.5); White Blood Cell Count 9.3 10^3/uL (4.8-10.8)
[2023-10-13 04:29] LABS: Hematocrit 19.7 % (37.0-47.0); Hemoglobin 6.7 g/dL (12.0-16.0)
[2023-10-13 04:58] LABS: Procalcitonin 0.81 ng/ml (0.0-0.25)
[2023-10-13] MEDS: ZOSYN 50 IV ×2 (05:11→13:54)
--- NOTE | 2023-10-13 05:23 | PTCARENOTE ---
pt reassessed. AM labs sent. Hgb 6.7, ICU SLEEPER CUTTER notified. type and screen sent. SR on monitor. 4L NC, some expiratory wheezing noted. pt repositioned, oral care provided. plan of care ongoing.
[2023-10-13 05:36] LABS: ALT (SGPT) 18 U/L (0-35); AST (SGOT) 37 U/L (14-36); Albumin 3.2 g/dl (3.5-5.0); Alkaline Phosphatase 38 U/L (38-126); Blood Urea Nitrogen 80 mg/dl (7-17); Calcium 6.8 mg/dl (8.4-10.2); Carbon Dioxide 14 mmol/L (22-30); Chloride 85 mmol/L (98-107); Estimated Creatinine Clearance 5 ml/min; Glucose 237 mg/dl (70-99); Magnesium 1.7 mg/dl (1.6-2.3); Phosphorus 8.3 mg/dl (2.5-4.5); Potassium 4.7 mmol/L (3.5-5.1); Sodium 127 mmol/L (135-145); Total Bilirubin 0.5 mg/dl (0.2-1.3); Total Protein 4.9 g/dl (6.3-8.2); eGFR 4.98
[2023-10-13] MEDS: SODIUM BICARBONATE 1150 MEQ IV ×2 (05:37→08:48)
[2023-10-13 05:38] LABS: Glucose - Point of Care 260 mg/dl (70-99)
[2023-10-13] MEDS: NOVOLOG FLEXPEN-LOW RESISTANCE 2 UNITS SC (05:38)
--- NOTE | 2023-10-13 06:04 | W.PN.UPDATE ---
Update Note
Progress Note Update
Hgb dropped to 6.7; hemodynamics improving with pressors, type and screen done. Daughter notified for consent, she was not interested in blood transfusion due to her mother's condition. Also daughter, stated her mother would not want excess
measure done.
[2023-10-13] MEDS: CALCIUM GLUCONATE 130 MG IV (06:14)
--- NOTE | 2023-10-13 07:38 | W.PN.HOSP.TC ---
Addendum entered and electronically signed by Bakari Scherer DO 10/13/23 14:42:
Pneumonia -differential diagnosis includes aspiration pneumonia versus community-acquired pneumonia.
Acute hypoxic respiratory failure -requiring 6 L of nasal cannula oxygen. Etiology is pneumonia. Wean down as able.
Original Note:
Today's Communication/Plan
-
Continue current care
Await family arrival
Assessment / Plan
Assessment / Plan
Gen-somnolent but arousable
HEENT-NC, AT, anicteric, clear oral mm
Neck-supple
CV-reg, no M, +S1/S2
Lungs-clear B/L
Abd-soft, NT, ND
Ext-no edema
Musculoskeletal-no cyanosis, clubbing
Skin-warm and dry
Neuro-grossly non-focal
Psych-calm, cooperative
Acute TME -due to critical illness, septic shock, MARTI, etc. CT head on admission without acute disease.
Septic and/or Hypovolemic Shock -etiology unclear. Presentation with acute gastroenteritis. CT scan shows mild colitis. Possible right lower lobe pneumonia. Continue vasopressors.
Lactic acidosis due to septic shock.
No role for procalcitonin in the setting of MARTI. Please stop checking.
Presumed community-acquired pneumonia -repeat chest x-ray from 10/12 shows ill-defined opacity within the right midlung zone. Continue empiric antibiotics. Blood cultures negative so far.
Acute kidney injury -suspect due to septic shock, ATN. Poor dialysis candidate given her age and frailty. Family opted for nonaggressive measures. Hold lisinopril, HCTZ, metformin. Renal ultrasound without hydronephrosis.
Acute anemia -hemoglobin down to 6.7 today, was 9.4 on admission. Baseline unknown. Daughter has opted for nonaggressive measures, hold off on transfusion.
DM2 with DKA -hemoglobin A1c 5.8% but I do not believe this is accurate in the setting of her anemia. Glucose 237 this morning. Will discontinue dextrose in her bicarbonate infusion, use sterile water. Change to moderate scale subcutaneous
insulin.
Severe metabolic acidosis -high anion gap. Suspect component of diabetic ketoacidosis given elevated beta hydroxybutyrate.
Hyponatremia -at least partly explained by hyperglycemia.
Hyperkalemia -improved.
Hyperphosphatemia -due to MARTI. Associated hypocalcemia.
Essential HTN -currently in shock. Hold antihypertensives.
Infiltration pressor upper extr--> s/p phentolamine
Hyperlipidemia - hold statins
Depression/cognitive impairment--> hold ssri
DVT proph -order SCDs.
DNR
I had a long discussion with patient's daughter Vignesh on the phone regarding goals of care. Daughter states that she knows her mother would not want to prolong her suffering and daughter is interested in withdrawing care and transitioning to comfort
measures. Vignesh mentioned that her mother decided back in 2018 when her father to pursue comfort measures in the case of a medical emergency or life altering event.
Vignesh wants to hold off on transfusion. She also wants to start withdrawing care this evening when she comes into the hospital after work. Specifically, she wants to discontinue vasopressors and antibiotics tonight. Vignesh understands that her
mother may pass soon on comfort measures.
Anticipated Discharge: > 48 hours
Subjective/Interval History
-
Date of Service: October 13, 2023
Patient seen and examined. Somnolent but arousable. Not able to fully converse, confused.
Objective Data
-
Labs:
Laboratory Results
10/12/23 10/13/23 10/13/23
21:03 04:15 07:26
WBC 9.3
Hgb 6.7 L* D Cancelled
Hct 19.7 L* Cancelled
Plt Count 190 D
Sodium 126 L 127 L
Potassium 5.4 H 4.7
Chloride 90 L 85 L
Carbon Dioxide 10 L* 14 L*
BUN 78 H 80 H
Creatinine 7.7 H* 7.5 H*
Glucose 181 H 237 H
Calcium 7.1 L 6.8 L*
Total Bilirubin 0.5 0.5
AST 42 H 37 H
ALT 19 18
Alkaline Phosphatase 51 38
Vital Signs:
Vital Signs
Temp Pulse Resp BP Pulse Ox
99.3 F 86 17 124/53 94
10/13/23 04:12 10/13/23 07:00 10/13/23 07:00 10/13/23 07:00 10/13/23 07:00
I&O
10/12/23 10/13/23 10/14/23
06:59 06:59 06:59
Intake Total 330 / 330 6298.0 / 6298.0
Output Total 975 / 975
Balance 330 / 330 5323.0 / 5323.0
Review of Systems
-
Unable to obtain full review of systems at this time due to: Acuity
--- NOTE | 2023-10-13 08:00 | W.PN.NEPH.PH ---
Today's Communication / Plan
-
Maintain alkaline IV fluid
Pressor support to maintain blood pressure to MAP of 65 until care to be withdrawn
Assessment/Plan
-
Impression::
Acute kidney injury
Hyperkalemia
Gapped Metabolic acidosis (28)
Sepsis physiology with hypotension
History of diabetes on metformin
Right pneumonia
Anemia
DKA
Plan:
Patient is critically ill with profound life-threatening hyperkalemia, renal failure and septic physiology
-We should continue alkaline IV fluids in the setting of her gapped metabolic acidosis in addition to dual pressor support to maintain mean arterial perfusion pressures greater than 65
-Metformin, hydrochlorothiazide and lisinopril are held
-Hyperkalemia improved
-Maintain Reyes catheter ~1 liter of urine
-Although metabolic acidosis is In may be due to lactic acidosis obtained a beta hydroxybutyrate and notably elevated >7 now on high dose insulin for DKA
-Maintain lower dose of sodium bicarb at night IV fluids at 80 cc/h
-Can discontinue normal salin
-Lactic acidosis may be precipitated by metformin administration the setting of acute kidney injury
-No evidence of obstructive uropathy by CAT scan review
-Broad-spectrum antibiotic therapy and provided and to be appropriately renally dose
-I had a discussion with the daughter who stated that her mother does not want aggressive care and has wanted to over the past several months, and henceforth, dialysis, even temporarily,is not to be performed
-Withdrawal support later today
Total Time Spent with Patient (in minutes): 31 minutes critical care time spent with patient
-
-
Date of Service: October 13, 2023
CC / HPI / ROS
-
Chief Complaint:
Acute kidney injury
History of Present Illness:
Creatinine with modest improvement
Hemodynamically labile on pressor support
Hyperkalemia improved
Metabolic acidosis persist on alkaline IV fluids
Review of Systems:
Nonoliguric
Weight is up 5 kg
Labs
-
Labs:
WBC 9.3 10^3/uL (4.8-10.8) 10/13/23 04:15
RBC 2.00 10^6/uL (4.20-5.40) L 10/13/23 04:15
Hgb Cancelled 10/13/23 07:26
Hct Cancelled 10/13/23 07:26
Plt Count 190 10^3/uL (130-400) D 10/13/23 04:15
Sodium 127 mmol/L (135-145) L 10/13/23 04:15
Potassium 4.7 mmol/L (3.5-5.1) 10/13/23 04:15
Chloride 85 mmol/L (98-107) L 10/13/23 04:15
Carbon Dioxide 14 mmol/L (22-30) L* 10/13/23 04:15
BUN 80 mg/dl (7-17) H 10/13/23 04:15
Creatinine 7.5 mg/dL (0.6-1.0) H* 10/13/23 04:15
eGFR 4.98 10/13/23 04:15
Glucose 237 mg/dl (70-99) H 10/13/23 04:15
Calcium 6.8 mg/dl (8.4-10.2) L* 10/13/23 04:15
Phosphorus 8.3 mg/dl (2.5-4.5) H 10/13/23 04:15
Albumin 3.2 g/dl (3.5-5.0) L 10/13/23 04:15
Physical Exam
-
Vital Signs:
Vital Signs
Temp Pulse Resp BP Pulse Ox
99.3 F 86 17 124/53 94
10/13/23 04:12 10/13/23 07:00 10/13/23 07:00 10/13/23 07:00 10/13/23 07:00
Cardiovascular:: Regular rate and rhythm
Respiratory:: Bilateral: Coarse
Lung Excursion:: Normal
Abdomen:: Nontender and Soft
Bowel Sounds:: Decreased
Extremity Edema:: +1: Bilateral:
Reyes Catheter: Yes
[2023-10-13] MEDS: HEPARIN 5000 UNITS SC (08:19)
[2023-10-13] MEDS: NOVOLOG FLEXPEN-MODERATE RESISTANCE 3 UNITS SC (08:20)
[2023-10-13 08:29] LABS: Glucose - Point of Care 215 mg/dl (70-99)
--- NOTE | 2023-10-13 08:51 | W.PN.INTV ---
Today's Communication / Plan
Recommendations
Transitioning to comfort care
Continue vasopressors until daughter, Vignesh, arrives to the unit
Consult hospice
Rod Straightener/pulmonary service will now sign off. Please re-consult if there are any additional questions or concerns. Thank you for allowing me to be involved in the care of this patient.
Assessment
-
Assessment: 83-year-old F with PMHx below who p/w nausea/vomiting, weakness, diarrhea x few days and hypothermic in ER. Pt hypotensive in ER to 91/32, she was given IVF with 1.7L and started on levophed. WBC elevated to 11.4, lactate elevated
to 4.4, MARTI with Cr 8.9. UA appears clear. Pt given Abx. Iniital K 7.1 and she was Tx with temporizing agents with dextrose + insulin. Repeat K is 6.8 this AM. Lokelma could not be given due to nausea/vomiting. She was started on bicarb gtt and
TRX to ICU for further care. After arriving from ER she had RUE infiltration of levo and bicarb. Her RUE was Tx with phentolamine 5mg. Critical care services consulted for additional recommendations.
Chronic medical conditions [facility]: Hypertension, hyperlipidemia, DM type II
Impression:
#Acute kidney injury with hyperkalemia -due to prerenal azotemia in the setting of severe hypovolemia
#Hypovolemic shock with possible septic component (RLL + colitis are septic sources)
#Diarrhea with (mild) colitis seen on CT abd/pelvis
#Lactic acidosis
#Metabolic acidosis with increased anion gap -multifactorial due to lactic acidosis, starvation ketoacidosis and acute kidney injury
#Anemia
#Infiltrated IV with vasopressors causing local injury to RUE s/p phentolamine
Plan:
- I spoke with daughter who says that her mother has not been doing well for some time, and that she wants to stop treatment and TRX to comfort. I answered all her questions, and explained the critically ill state her mother is in qith requirement
of vasopressors and she continues to be agitated/confused and now anemic (likely dilutional due to no active Sx of bleeding). This only made the daughter more sure that she wants to TRX to comfort care
- Until the daughter arrives:
- Continue vasopressors with goal MAP>65
- Appears that patient has severe hypovolemia with starvation ketosis/ketoacidosis --> in this setting, we should give not only bicarb, but only IVF in addition to glucose containing fluids --> this has been shown to improve patient's endogenous
insulin production and restoring normal metabolic processes thus improving the metabolic acidosis and the hyperglycemia also should improve
- Trend sCr, [K], blood glucose and use ISS q6hr
- Use temporizing agents to treat K>5.8 with goal K 3.5 - 5.2
- Follow up vitamin B1 level given mild RUL PNA and clear urine with low suspicion for severe sepsis
- Continue vasopressors with goal MAP>65
- Continue broad spectrum ABx with zosyn and vanco --> DC'd IV vanco if MRSA swab negative
- Check renal US --> no hydro seen
- Follow up blood Cx and trend procal; follow up stool Cx
- Consulted wound care for RUE and monitor pulses q1hr at least for first 24 hrs
- renally dose all meds/Abx
- stress ulcer ppx: n/a
- DVT ppx: HSQ
Code status: DNR
Patient's daughter will be coming to the hospital, and we will TRX to comfort care at that time. Will stop vasopressors, allow comfort feeds, pain control with prn dilaudid, and will consult hospice. I confirmed this with the daughter, Vignesh, and
she agrees with this plan. All questions were answered.
Data:
CT abd/pelvis 10-11-2023:
1. Suspicion for a mild colitis given the presence of mild diffuse colonic wall thickening. However, overall somewhat limited evaluation for an acute inflammatory process in the absence of oral and intravenous contrast.
2. Right lower lobe pneumonia.
Subjective Dataa
Subjective Data
Date of Service:
Date of Service: October 13, 2023
Chief Complaint: Rod Straightener Follow Up
Subjective:
Pt seen this AM. Levo at 6mcg/min. BP 123/56, HR 84. She is lethargic but awakening easily to voice. She has mitts on as she still gets agitated and tries to pull at lines.
Review of Systems
General: Other (neg unless mentioned above)
Objective Data
Data Reviewed
Vital Signs / I&O / Oxygen:
Vital Signs
Temp Pulse Resp BP Pulse Ox
98.8 F 88 17 95/61 97
10/13/23 07:40 10/13/23 10:00 10/13/23 10:00 10/13/23 10:00 10/13/23 10:00
Intake and Output
10/12/23 10/13/23 10/14/23
06:59 06:59 06:59
Intake Total 330 / 330 6298.0 / 6537.0 701.0 / 701.0
Output Total 975 / 975 770 / 770
Balance 330 / 330 5323.0 / 5562.0 -69.0 / -69.0
SaO2 97
Nasal Cannula flow liters per 6
minute
Physical Exam
General: Comfortable and Chills (n)
HEENT: Normocephalic and Anicteric
Cardiovascular: S1-S2 and Peripheral Edema (+2 LE pitting edema)
Respiratory: Wheeze (negative) and Other (Coarse BS b/l)
GI: Soft and Non Distended
Neurology: No Motor Deficits, Tremors (n) and Lethargic
Skin: Warm and Dry
Labs/Micro/Reports
Lab Data
10/13/23 07:26
10/13/23 04:15
Microbiology
10/12/23 11:05 Feces/Stool Salmonella/Shigella Culture - Preliminary
Culture in Progress
10/12/23 11:05 Feces/Stool Campylobacter Culture - Preliminary
Culture in Progress
10/13/23 08:46 Nasal Swab Respiratory Syncytial Virus Culture - Final
Negative for Respiratory Syncytial Virus.
A false negative result may be obtained with a specimen
collected early in the acute phase. If symptoms persist, a
new specimen should be tested.
10/13/23 08:18 Nasal Swab Influenza Types A & B (VIVIEN) - Final
Negative for Influenza A & B, NAAT
Negative results must be combined with clinical observations
and patient history.
Nucleic Acid Amplification test (NAAT)performed on the
[employer] platform.
10/13/23 00:23 Urine Legionella Urinary Antigen - Final
Negative for Legionella pneumophila Serogroup 1 antigen.
A negative result does not rule out the possiblity of
Legionella infection due to other serogroups or species of
Legionella. Clinical correlation is recommended.
10/13/23 00:23 Urine Streptococcus pneumoniae Antigen (M - Final
Negative for Streptococcus pneumoniae antigen.
A negative result does not exclude infection with
Streptococcus pneumoniae. Clinical correlation is
recommended.
10/11/23 22:10 Blood/Venous Blood Culture - Preliminary
No Growth in 24 hours- Final report to follow
10/11/23 22:10 Blood/Venous Blood Culture - Preliminary
No Growth in 24 hours- Final report to follow
10/12/23 11:05 Feces/Stool Stool Leukocytes - Final
10/12/23 11:05 Nose Nasal Screen MRSA (PCR) - Final
MRSA not detected - performed by PCR methodology.
10/12/23 11:05 Feces/Stool C. difficile GDH Antigen & Toxins - Final
Negative for toxigenic C.difficile
--- NOTE | 2023-10-13 09:47 | VATNOTE ---
Vat rounds: right arm levo infiltrate with blisters noted. no redness noted. wound consult recommended. Will continue to monitor closely.
--- NOTE | 2023-10-13 11:20 | PN.CDI ---
CDI
- -
CDI:
Physician Documentation Request
Admit Date: 10/12/23 02:41
Dear Doctor Niesha,
Patient admitted with septic shock.
Oxygen use documented below:
Selected Entries
10/13/23
03:58 10/13/23
08:00 10/13/23
08:00
Nasal Cannula flow liters per minute 6 6 6
Please provide in your note the diagnosis associated with the patient's current oxygen use:
Acute hypoxic respiratory failure
Hypoxia only
Other
Use of terms such as suspected, likely, concern for, or probable (associated with a specific diagnosis that is being evaluated, monitored, or treated as if it exists) are acceptable and can be coded in the inpatient setting, when documented at the
time of discharge.
Thank you,
Trista CAMERONN,RN,CCDS
CDI Specialist
Available via [place] text
Please use your independent medical judgment in providing your response.
--- NOTE | 2023-10-13 11:35 | WOUNDNOTE ---
WO RN note: Patient admitted with MARTI, septic shock. Patient lives with family. Family considering withdrawing care.
See H&P for complete history. [facility] RN consult to take photo of RUE IV infiltrate from Levophed and bicarb, s/p phentolamine treatment.
PMH: HTN, DM.
Wound Location and type/assessment: Patient has R arm serous intact blister without erythema. Perineal mild MASD. Patient having loose stools. Rectal trumpet in place. Calazime ointment being used to susana/sacral skin.
Appetite: NPO.
Pressure redistribution devices in place: Centrella Max air bed. Patient cannot turn self in bed. Pillow off loading heels.
Plan: Patient incontinent of liquid dark brown/green stool. Susana care given, Calazime ointment applied. Patient turned with help from GERA Estrada. Heels off bed with pillow.
Care plan updated.
Will follow peripherally as needed.
--- NOTE | 2023-10-13 11:51 | PN.CDI ---
CDI
- -
CDI:
Physician Documentation Request
Admit Date: 10/12/23 02:41
Dear Doctor Niesha,
Patient admitted with septic shock.
H&P,'...presents do the ED due to progressive weakness, anorexia, nausea, vomiting, and diarrhea that started on Wednesday....Emesis this evening was large volume...'
10/13 PN, 'Presumed community-acquired pneumonia -repeat chest x-ray from 10/12 shows ill-defined opacity within the right midlung zone. Continue empiric antibiotics.
Please clarify in your note the likely diagnosis associated with the above findings:
Aspiration pneumonia
Community-acquired pneumonia only
Other
Use of terms such as suspected, likely, concern for, or probable (associated with a specific diagnosis that is being evaluated, monitored, or treated as if it exists) are acceptable and can be coded in the inpatient setting, when documented at the
time of discharge.
Thank you,
Trista ZUNIGA,RN,CCDS
CDI Specialist
Available via [employer] text
Please use your independent medical judgment in providing your response.
--- NOTE | 2023-10-13 12:00 | WOUNDNOTE ---
R FOREARM (DISTAL TO ANTECUBITAL SPACE)
--- NOTE | 2023-10-13 12:05 | WOUNDNOTE ---
WO RN note: Patient admitted with MARTI, septic shock. Patient lives with family. Family considering withdrawing care.
See H&P for complete history. WO RN consult to take photo of RUE IV infiltrate from Levophed and bicarb, s/p phentolamine treatment.
PMH: HTN, DM.
Wound Location and type/assessment: Patient has R arm serous intact blister without erythema. Susana skin mild MASD. Patient having loose stools. Rectal trumpet in place. Calazime ointment being used to susana/sacral skin.
Appetite: NPO.
Pressure redistribution devices in place: Centrella Max air bed. Patient cannot turn self in bed. Pillow off loading heels.
Plan: Patient incontinent of liquid dark brown/green stool. Susana care given, Calazime ointment applied. Patient turned with help from GERA Estrada. Heels off bed with pillow.
Care plan updated.
Will follow peripherally as needed.
[2023-10-13 12:39] LABS: Glucose - Point of Care 148 mg/dl (70-99)
[2023-10-13] MEDS: NOVOLOG FLEXPEN-MODERATE RESISTANCE SC (13:22)
--- NOTE | 2023-10-13 14:47 | PTCARENOTE ---
Patient received in AM with assessment as noted. Continues mostly sleeping but easily awakens to voice. Oriented to self only when awake. Affect mostly calm but occasionally tearful. Reaching for her right IJ IV tubing and bilateral mitts maintained
for patient safety with current order on chart and documentation as noted. NSR on monitor. Afebrile. Levophed weaned from 8 to 4 mcg/min with MAP's maintained >65. Vasopressin continues at 0.03 units/min. Lungs decreased in the bases bilaterally
otherwise slightly coarse with scattered exp wheezes. Sao2 97% on 4lnc. Occasional loose cough. Hypo BS. Continues NPO. Rectal trumpet draining liquid green/brown stool. Reyes draining pale yellow urine. Patient currently in bed with mitts on and
side rails up. Will continue to monitor closely.
[2023-10-13 17:22] LABS: Lactic Acid 4.9 mmol/L (0.7-2.0)
--- NOTE | 2023-10-13 18:20 | PTCARENOTE ---
As per her daughter's wishes, the patient was made comfort measures and all IV's including Levophed, Vasopressin and Bicarb gtt's were d/c'd. Patient requested and received ice water which she drank several small sips with some coughing noted. She
appears comfortable. The digester hand was requested by her daughter and arrived at 1820 to visit with them. Emotional support offered. All other assessment data as previously noted.
--- NOTE | 2023-10-13 20:00 | PTCARENOTE ---
rec`d pt at 1900 resting in bed, sleepy. arousable to verbal stimuli. SR on monitor. Rt IJ, all lines capped. LT and RT wrist IVs, capped. +1 edema. weak but palpable pulses. room air. rectal trumpet in place draining green. therm garcia draining
minimal yellow urine. Rt arm blister open to air. bilateral hand mitts on. family at bedside. pain covered with PRN. safe environment maintained.
[2023-10-13] MEDS: DILAUDID 0.5 MG IV (20:31)
--- NOTE | 2023-10-14 | PTCARENOTE ---
pt reassessed. no changes in pt assessment, pt resting in bed.
--- NOTE | 2023-10-14 04:00 | PTCARENOTE ---
pt reassessed. no changes in pt assessment. pt resting.
[2023-10-14 06:00] VITALS: BMI 23.7
--- NOTE | 2023-10-14 07:25 | W.PN.HOSP.TC ---
Today's Communication/Plan
-
hospice consult
Assessment / Plan
Assessment / Plan
Gen-awake, alert, no acute distress
HEENT-NC, AT, anicteric, clear oral mm
Neck-supple
CV-reg, no M, +S1/S2
Lungs-clear B/L
Abd-soft, NT, ND
Ext-no edema
Musculoskeletal-no cyanosis, clubbing
Skin-warm and dry
Neuro-grossly non-focal
Psych-calm, cooperative
Acute hypoxic respiratory failure -requiring 6 L of nasal cannula oxygen initially, down to 2 L now.� Etiology is pneumonia.� Wean down as able.
Acute TME -due to critical illness, septic shock, MARTI, etc. CT head on admission without acute disease.
Septic and/or Hypovolemic Shock -etiology unclear. Presentation with acute gastroenteritis. CT scan shows mild colitis. Possible right lower lobe pneumonia.
Lactic acidosis due to septic shock.
No role for procalcitonin in the setting of MARTI. Please stop checking.
Pneumonia -community-acquired versus aspiration on presentation. Now off antibiotics, goal is comfort measures.
Acute kidney injury -suspect due to septic shock, ATN. Poor dialysis candidate given her age and frailty. Family opted for nonaggressive measures. Hold lisinopril, HCTZ, metformin. Renal ultrasound without hydronephrosis.
Acute anemia -hemoglobin down to 6.7 today, was 9.4 on admission. Baseline unknown. Daughter has opted for nonaggressive measures, hold off on transfusion.
DM2 with DKA
Severe metabolic acidosis -high anion gap. Suspect component of diabetic ketoacidosis given elevated beta hydroxybutyrate.
Hyponatremia -at least partly explained by hyperglycemia.
Hyperkalemia -improved.
Hyperphosphatemia -due to MARTI. Associated hypocalcemia.
Essential HTN -currently in shock. Hold antihypertensives.
Infiltration pressor upper extr--> s/p phentolamine
Hyperlipidemia - hold statins
Depression/cognitive impairment--> hold ssri
DVT proph -order SCDs.
DNR
Comfort measures as per patient and family wishes. Hospice consulted.
Anticipated Discharge: Within 24 hours
Subjective/Interval History
-
Date of Service: October 14, 2023
Patient seen and examined. Patient looks comfortable. No complaints. Asking for her daughter.
Objective Data
-
Labs:
Laboratory Results
10/14/23
06:00
WBC Cancelled
Hgb Cancelled
Hct Cancelled
Plt Count Cancelled
Sodium Cancelled
Potassium Cancelled
Chloride Cancelled
Carbon Dioxide Cancelled
BUN Cancelled
Creatinine Cancelled
Glucose Cancelled
Calcium Cancelled
Vital Signs:
Vital Signs
Temp Pulse Resp BP Pulse Ox
99.1 F 81 17 87/38 94
10/13/23 15:00 10/14/23 06:30 10/14/23 06:30 10/13/23 17:30 10/13/23 20:00
I&O
10/13/23 10/14/23 10/15/23
06:59 06:59 06:59
Intake Total 6298.0 / 6537.0 1598.0 / 1598.0
Output Total 975 / 975 2660 / 2660
Balance 5323.0 / 5562.0 -1062.0 / -1062.0
Review of Systems
-
History Source: Patient
All other systems: Reviewed and negative
--- NOTE | 2023-10-14 09:46 | HOSPNOTE ---
Spoke with daughter about hospice care and the philosophy. The daughter is in agreement and needs to get a few things in order. The plan is home Wednesday10/16/23 and will need transport. OOH DNR will need to be on chart. Comfort meds only will be
ordered and once patient is home will admit onto hospice services.
--- NOTE | 2023-10-14 11:34 | CM ---
CM following re: discharge planning.
Reviewed pt's chart, met with pt and pt's daughter at bedside.
Per MD pt is comfort care, emotional support offered and provided to pt and her daughter.
Hospice care consult noted. Pt referred to hospice.
D/C plan: comfort care. operations liaison following.
CM is available for emotional support.
--- NOTE | 2023-10-14 11:59 | PTCARENOTE ---
PT received from ICU via bed. Pt accompanied by her daughter and 2 staff. Pt oriented to staff, environment and call light system. Reyes cath draining to gravity yellow color urine. Rectal trumpet in place with greenish color stool noted.
Personal items and call light within reach.
--- NOTE | 2023-10-14 12:06 | PTCARENOTE ---
Patient received with assessment as noted. Continues lethargic but arousable and denies pain. For transfer to [facility] and report called to [place] on . Transferred via bed accompanied by his daughter.
[2023-10-14] MEDS: DILAUDID 0.5 MG IV ×2 (13:26→17:17)
[2023-10-14 19:00] VITALS: BP 80/60
[2023-10-15 07:00] VITALS: BP 126/69
[2023-10-15] MEDS: DILAUDID 0.5 MG IV ×2 (09:36→21:21)
--- NOTE | 2023-10-15 13:36 | W.PN.HOSP.TC ---
Today's Communication/Plan
-
DC planning
Assessment / Plan
Assessment / Plan
Acute hypoxic respiratory failure -requiring 6 L of nasal cannula oxygen initially, down to RA.� Etiology is pneumonia.
Acute TME -due to critical illness, septic shock, MARTI, etc. CT head on admission without acute disease. Alert and oriented today. No agitation
Septic and/or Hypovolemic Shock -etiology unclear. Presentation with acute gastroenteritis. CT scan shows mild colitis. Possible right lower lobe pneumonia. BP ok now
Lactic acidosis due to septic shock.
Pneumonia -community-acquired versus aspiration on presentation. Now off antibiotics, goal is comfort measures.
Acute kidney injury -suspect due to septic shock, ATN. Poor dialysis candidate given her age and frailty. Family opted for nonaggressive measures. Hold lisinopril, HCTZ, metformin. Renal ultrasound without hydronephrosis.
Acute anemia -hemoglobin down to 6.7 , was 9.4 on admission. Baseline unknown. Daughter has opted for nonaggressive measures, hold off on transfusion.
DM2 with DKA
Severe metabolic acidosis -high anion gap. Suspect component of diabetic ketoacidosis given elevated beta hydroxybutyrate.
Hyponatremia -at least partly explained by hyperglycemia.
Hyperkalemia -improved.
Hyperphosphatemia -due to MARTI. Associated hypocalcemia.
Essential HTN -currently in shock. Hold antihypertensives.
Infiltration pressor upper extr--> s/p phentolamine
Hyperlipidemia - hold statins
Depression/cognitive impairment--> hold ssri
DVT proph -order SCDs.
DNR
Comfort measures as per patient and family wishes. Hospice consulted -plan for home on hopsice for tomorrow noted.
DW daughter at bedside re plan and answered all her questions
Anticipated Discharge: Within 24 hours
Subjective/Interval History
-
Date of Service: October 15, 2023
Feels ok
Pain ok with pain medications
Await dc on home hospice
Objective Data
-
Vital Signs:
Vital Signs
Temp Pulse Resp BP Pulse Ox
98.2 F 96 16 126/69 96
10/15/23 07:00 10/15/23 07:00 10/15/23 07:00 10/15/23 07:00 10/15/23 07:00
I&O
10/14/23 10/15/23 10/16/23
06:59 06:59 06:59
Intake Total 1598.0 / 1598.0 450 / 450
Output Total 2660 / 2660 850 / 850
Balance -1062.0 / -1062.0 -400 / -400
Review of Systems
-
Respiratory: Denies Trouble Breathing
Cardiac: Denies Chest Pain
Abdomen/GI: Denies Nausea or Vomiting
Physical Exam
-
General: No Apparent Distress and Comfortable
Respiratory: Non Labored Respirations; Negative Accessory Resp Muscle Use
GI: Soft
Neuro: Awake, Alert and Oriented (self and place)
Psych: Calm; Negative Agitated
--- NOTE | 2023-10-15 14:09 | CM ---
Reviewed chart, medical necessity and transfer form for patient in anticipation of going home tomorrow. Provided to [employer] aide.
Plan: Case management will continue to follow and assist with discharge planning. Home on hospice.
[2023-10-15 19:20] VITALS: BP 118/65
[2023-10-15] MEDS: FLUSH (NSS) 2 FLUSH IV (21:20)
[2023-10-16] MEDS: DILAUDID 0.5 MG IV (03:01)
[2023-10-16] MEDS: FLUSH (NSS) 2 FLUSH IV (03:01)
[2023-10-16 08:21] VITALS: BP 125/71
--- NOTE | 2023-10-16 09:19 | W.PN.HOSP.TC ---
Today's Communication/Plan
-
DC
Assessment / Plan
Assessment / Plan
Acute hypoxic respiratory failure -requiring 6 L of nasal cannula oxygen initially, down to RA.� Etiology is pneumonia.
Acute TME -due to critical illness, septic shock, MARTI, etc. CT head on admission without acute disease. No agitation but confused today which is a change for her.
Septic and/or Hypovolemic Shock -etiology unclear. Presentation with acute gastroenteritis. CT scan shows mild colitis. Possible right lower lobe pneumonia. BP ok now but heart rate going up now.
Lactic acidosis due to septic shock.
Pneumonia -community-acquired versus aspiration on presentation. Now off antibiotics, goal is comfort measures.
Acute kidney injury -suspect due to septic shock, ATN. Poor dialysis candidate given her age and frailty. Family opted for nonaggressive measures. Hold lisinopril, HCTZ, metformin. Renal ultrasound without hydronephrosis.
Acute anemia -hemoglobin down to 6.7 , was 9.4 on admission. Baseline unknown. Daughter has opted for nonaggressive measures, hold off on transfusion.
DM2 with DKA
Severe metabolic acidosis -high anion gap. Suspect component of diabetic ketoacidosis given elevated beta hydroxybutyrate.
Essential HTN -currently in shock. Hold antihypertensives.
Infiltration pressor upper extr--> s/p phentolamine
Hyperlipidemia - hold statins
Depression/cognitive impairment--> hold ssri
DVT proph -order SCDs.
DNR
Comfort measures as per patient and family wishes. Hospice consulted -plan for home on hopsice today.
DW daughter at bedside 10/15 re plan and answered all her questions. Plan continues to be home hospice for today.
Discussed with case management. Things all set up for her discharge on home hospice 11:00.
Total time of discharge 35 minutes
Anticipated Discharge: Today
Subjective/Interval History
-
Date of Service: October 16, 2023
Patient today is confused.
She knew she was in the hospital but got the name of the hospital wrong. When I told her she is going home at 11:00, she asked me where her home is.
Denies any discomfort.
Objective Data
-
Vital Signs:
Vital Signs
Temp Pulse Resp BP Pulse Ox
97.9 F 120 18 125/71 94
10/16/23 08:21 10/16/23 08:21 10/16/23 08:21 10/16/23 08:21 10/16/23 08:21
I&O
10/15/23 10/16/23 10/17/23
06:59 06:59 06:59
Intake Total 450 / 450 900 / 900
Output Total 850 / 850 2135 / 2135
Balance -400 / -400 -1235 / -1235
Review of Systems
-
Unable to obtain full review of systems at this time due to: Other (Confusion)
Physical Exam
-
General: No Apparent Distress
Respiratory: Non Labored Respirations and Accessory Resp Muscle Use
Cardiac: Regular Rhythm, S1/S2 and Tachycardic
GI: Soft
Neuro: Awake and Alert; Negative Oriented
Psych: Calm and Confused; Negative Agitated
--- NOTE | 2023-10-16 09:24 | W.DS.TRANS ---
DC Summary - [employer]
-
Discharge Instructions:
Discharge Diagnosis/Procedures Septic shock, pneumonia, MARTI, severe anemia
Diet Regular
Activity As tolerated
Driving Restrictions No driving
Other Services Hospice
Instructions:
Stand-Alone Forms:
Changes to Home Medications: Yes
Discharge Medications:
DC Medications w/original date entered in [employer]
citalopram 20 mg tablet 30 mg PO QPM Mental Health/Anxiety 10/11/23
Home Medication Changes
All her medication except citalopram discontinued.
Medication for comfort as per hospice.
Pending Results: No
--- NOTE | 2023-10-16 09:25 | W.DCSUMMARY ---
Discharge Summary
Discharge Data
Date of Admission: 10/12/23
Date of Discharge: 10/16/23
-
Pending Results: No
Hospital Course
Primary diagnosis:
Septic shock
Community-acquired pneumonia
Acute kidney injury
Is diabetic ketoacidosis
Acute severe anemia with hemoglobin 6.7
Acute toxic metabolic encephalopathy
Acute hypoxic respiratory failure
Secondary diagnosis:
Essential hypertension
Diabetes mellitus type 2
Depression
Cognitive impairment
Hospital course:
83-year-old lady presented with a weakness, nausea, vomiting and diarrhea was noted to be in shock suspected septic. She had a pneumonia with acute hypoxic respiratory failure on admission. She also has an acute kidney injury with what looks like
diabetic ketoacidosis.
She was admitted to the ICU and started on pressors.
He was noted to have a severe anemia 2 with hemoglobin 6.7.
With the septic shock and acute kidney injury and other acute issues as above, the prognosis was poor. Was seen by line servicer. [place] a poor candidate for dialysis ; family wanted nonaggressive measures.
No transfusion was considered because comfort was the goal.
There were discussions per the hospitalist, line servicer and county court judge with the family. Daughter wanted comfort measures ;hospice was broached and she wanted her mother home on hospice.
Consultants on board:
Nephrology-Dr. Doan
[employer]-Dr. Mercedes
Discharge Plan
-
Patient Disposition: Home with Hospice
Discharge Diagnosis/Procedures: Septic shock, pneumonia, MARTI, severe anemia
Condition: Serious
Diet: Regular
Activity: As tolerated
Driving Restrictions: No driving
Other Services: Hospice
Activity Restrictions/Additional Instructions:
Wound Care Instructions
RUE blister (just distal to antecubital space), keep protected, if blister breaks, cover loosely with adaptic, gauze and Spandage, change daily and prn drainage.
Referrals:
Melquiades Shin MD [Family Provider] -
Prescriptions:
Continued
citalopram 20 mg tablet
30 mg PO QPM
Discontinued
cyanocobalamin (vitamin B-12) [Vitamin B-12] 1,000 mcg Tablet
1,000 mcg PO DAILY
lisinopril-hydrochlorothiazide 20-25 mg tablet
1 tab PO QPM
pravastatin 20 mg tablet
20 mg PO QPM
metformin 500 mg tablet extended release 24 hr
1,000 mg PO BID
metoprolol tartrate 25 mg tablet
12.5 mg PO BID
Centrum 18-400 mg-mcg Tablet
1 tab PO DAILY
omega 2-lrx-frg-fish oil [Fish Oil] 1,000 mg (120 mg-180 mg) Capsule
1 cap PO BID
[employer] [facility] 750 mg-100 mg- 1.65 mg-108 mg Tablet
1 tab PO BID
Discharge Orders:
Discharge Patient (As Directed); Ordered 10/16/23
Ordered By: Bradley Cordova
--- NOTE | 2023-10-16 09:56 | CM ---
Patient with Dx Septic shock, CAP, MARTI, DKA, anemia, TME, Acute hypoxic respiratory failure. Room air. Patient seen by Hospice.
Spoke with patient's daughter Vignesh; she is ready to receive the patient at home today and is aware of 11am ambulance transport time. IMM completed. Daughter was informed by [facility] that hospice nurse Laura would be meeting her at the
patient's home at noon and will be bringing equipment. Vignesh feels she has enough help at home to care for her mother.
Message to [facility] confirming ambulance transport set up for 11am.
Out of Hosp DNR form signed on chart.
Plan home today with Hospice by ambulance.
--- NOTE | 2023-10-16 11:04 | VATNOTE ---
Reported Right antecube IV extravasation with foam dressing , unable to assess
[2023-10-16 12:10] LABS: Vitamin B1, Whole Blood 86 nmol/L (70-180)
--- NOTE | 2023-10-16 13:57 | PTCARENOTE ---
Rectal tube removed as per MD order prior to dc.
== END 2023-10-16 11:55 | disposition hospice, home (50) | DRG 871 ==
LOC: 3 WEST ACU 02:41
PROVIDERS: Hospitalist; Nurse Practitioner Primary Care; Physician Assistant Medical; Radiology Vascular & Interventional Radiology; ADMITTING PHYSICIAN Internal Medicine; ATTENDING PHYSICIAN Internal Medicine; CONSULT PHYSICIAN Internal Medicine Critical Care Medicine; EMERGENCY PHYSICIAN Emergency Medicine; FAMILY PHYSICIAN Family Medicine; OTHER PHYSICIAN Specialist
PROC: 05HM33Z Insertion of Infusion Device into Right Internal Jugular Vein, Percutaneous Approach (ICD-10-PCS; 2023-10-12)
DX: A41.9 Sepsis, unspecified organism (principal); E11.10 Type 2 diabetes mellitus with ketoacidosis without coma; R65.21 Severe sepsis with septic shock; R57.1 Hypovolemic shock; J96.01 Acute respiratory failure with hypoxia; G92.8 Other toxic encephalopathy; J18.9 Pneumonia, unspecified organism; N17.0 Acute kidney failure with tubular necrosis; E87.1 Hypo-osmolality and hyponatremia; I10 Essential (primary) hypertension; E78.00 Pure hypercholesterolemia, unspecified; R19.7 Diarrhea, unspecified; Z51.5 Encounter for palliative care; R68.0 Hypothermia, not associated with low environmental temperature; E87.5 Hyperkalemia; E83.39 Other disorders of phosphorus metabolism; R29.6 Repeated falls; E86.0 Dehydration; F32.A Depression, unspecified; R41.89 Other symptoms and signs involving cognitive functions and awareness; D64.9 Anemia, unspecified; Z66 Do not resuscitate; Z11.52 Encounter for screening for COVID-19; Z90.49 Acquired absence of other specified parts of digestive tract; Z79.84 Long term (current) use of oral hypoglycemic drugs
CPT/HCPCS: 36556; 51701; 70450; 71045; 74176; 76770; 76937; 80048; 80053; 81003; 81015; 82010; 82805; 82962; 83036; 83605; 83735; 84100; 84145; 84425; 84443; 85025; 85379; 85384; 85610; 85730; 86140; 86850; 86900; 86901; 87040; 87045; 87046; 87324; 87427; 87449; 87502; 87641; 87807; 87811; 87899; 89055; 93005; 96365; 96366; 96375; 99291; J2760; P9047